=== PATIENT | male | born 1945 | race Asian ===

== ENCOUNTER 2019-04-08 19:44 | Inpatient (IN) | payer MEDICAID, MEDICARE ==
[~2019-04-08] VITALS: Ht 172.7 cm; Wt 80.7 kg
[2019-04-08 19:50] VITALS: BP 144/67
--- NOTE | 2019-04-08 19:50 | NUR ---
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 PER EMS, PT HAD VOMITING 1 AND TEMP OF 100 AT FACILITY. PT ARRIVES AWAKE; A/O X 1 TO NAME. IT IS UNKNOWN IF PT IS BOLIVIAN SPEAKING. FACILITY PAPERWORK STATES PT HAD COFFEE GROUND EMESIS X 1. NO VOMITING AT THIS TIME. AXILLARY TEMP 99.9. 3/10 PAIN NOTED PER FACIAL GRIMACING. FBS 154 MG/DL AT THIS TIME. BREATHING UNLABORED AND SYMMETRICAL; 98% ON RA. ERMD MADE AWARE OF STATUS. SIDE RAILSX1. WILL CONTINUE TO MONITOR. PMH-- CHF, DM, DIALYSIS (RIGHT UPPER CHEST ACCESS) RX:SEE PATIENT'S DYLLAN NKDA
[2019-04-08] MEDS ORDERED: PANTOPRAZOLE 40 MG in SODIUM CHLORIDE FLUSH 250 ML IV ONE (20:25)
[2019-04-08] MEDS ORDERED: PANTOPRAZOLE 40 MG INJ VIAL ONE (20:41)
[2019-04-08] MEDS ORDERED: VANCOMYCIN 1,000 MG in DEXTROSE 5% 250 ML IV ONE (21:05)
[2019-04-08] MEDS ORDERED: MEROPENEM 500 MG in NACL 0.9% 100 ML IV ONE (21:05)
[2019-04-08] MEDS ORDERED: VANCOMYCIN 1,000 MG VIAL ONE (21:54)
[2019-04-08] MEDS ORDERED: HYDROcodone/APAP 5/325 MG 1 TAB TAB PO PRN (21:55)
[2019-04-08] MEDS ORDERED: ACETAMINOPHEN 325 MG TAB PO PRN (21:55)
[2019-04-08] MEDS ORDERED: DOCUSATE SODIUM 100 MG GELCAP PO PRN (21:55)
[2019-04-08] MEDS ORDERED: ONDANSETRON 4 MG/2 ML VIAL IM/IVP PRN (21:55)
[2019-04-08 21:56] LABS: ANION GAP 12.6 (8-16); CARBON DIOXIDE 30.9 mmol/L (21-32); CHLORIDE 101 mmol/L (98-107); CREATININE 2.2 mg/dL (0.7-1.3); GLUCOSE 195 mg/dL (74-106); POTASSIUM 4.5 mmol/L (3.5-5.1); SODIUM SERUM 140 mmol/L (136-145); UREA NITROGEN, BLOOD 26 mg/dL (7-18)
[2019-04-08 22:08] LABS: ALBUMIN 2.6 g/dL (3.4-5.0); AMYLASE 101 U/L (25-115); ASPARTATE AMINOTRANSFERASE 22 U/L (15-37); BASOPHILS # (AUTO) 0.1 K/uL (0.00-0.22); BASOPHILS % (AUTO) 0.6 % (0.0-2.0); EOSINOPHILS # (AUTO) 0.1 K/uL (0-0.4); EOSINOPHILS % (AUTO) 0.7 % (0.0-4.0); HEMATOCRIT 37.1 % (36-52); HEMOGLOBIN 12.2 g/dL (12.0-18.0); LIPASE 355 U/L (73-393); LYMPHOCYTES # (AUTO) 2.4 K/uL (2.0-11.5); LYMPHOCYTES % (AUTO) 18.5 % (20.5-51.1); MEAN CORPUSCULAR HEMOGLOBIN 32 pg (27-31); MEAN CORPUSCULAR HGB CONC 33 g/dL (33-37); MEAN CORPUSCULAR VOLUME 97.3 fL (80-94); MONOCYTES # (AUTO) 1.3 K/uL (0.8-1.0); MONOCYTES % (AUTO) 10.4 % (1.7-9.3); NEUTROPHILS % (AUTO) 69.8 % (42.2-75.2); PLATELET COUNT (AUTO) 184 K/uL (140-450); RED BLOOD CELL COUNT(AUTO) 3.81 MIL/uL (4.20-6.10); RED CELL DISTRIBUTION WIDTH 15.1 % (11.6-13.7); TOTAL BILIRUBIN 0.4 mg/dL (0.0-1.0); WHITE BLOOD COUNT (AUTO) 12.9 K/uL (4.8-10.8)
[2019-04-08] MEDS ORDERED: ALBUTEROL SULFATE/IPRATROPIU 3 ML SOL IH PRN (22:45)
[2019-04-08] MEDS ORDERED: MEROPENEM 500 MG VIAL IV ONE (22:53)
[2019-04-08] MEDS ORDERED: GABA300C PO (23:01)
[2019-04-08] MEDS ORDERED: ISOS30TE68 PO (23:01)
[2019-04-08] MEDS ORDERED: DOCU-299 PO (23:01)
[2019-04-08] MEDS ORDERED: CARB1TAB37 PO (23:01)
[2019-04-08] MEDS ORDERED: ATOR10TA PO (23:01)
[2019-04-08] MEDS ORDERED: CARV6.25 PO (23:01)
[2019-04-08] MEDS ORDERED: LACT1CAP92 PO (23:01)
[2019-04-08] MEDS ORDERED: ASPI-1718 PO (23:01)
[2019-04-08] MEDS ORDERED: DULA0.75 SC (23:01)
[2019-04-08] MEDS ORDERED: FURO-570 PO (23:01)
[2019-04-08] MEDS ORDERED: HYDR-732 PO (23:01)
[2019-04-08 23:10] VITALS: BP 147/63
--- NOTE | 2019-04-08 23:10 | NUR ---
RECEIVED PT FROM ED VIA 2canSOITO PT AWAKE O X 1; PT IS CONFUSED. PT ESTONIAN; 2 DAUGHTERS AT BEDSIDE MOUNTER HAND. PT BEDREST.NON-AMBULATORY W/ IV ON THE LEFT AC G 22, PATENT INFUSING REMAINING ZOSYN. POC REVIEWED WITH DAUGHTERS. PT PLACED ON FALL RISK. WILL CONTINUE TO MONITOR
--- NOTE | 2019-04-08 23:15 | NUR ---
Patient will be admitted to care of DR. SILVA. Admited to TELE. Will go to room 123 B. Belongings list completed. Report to BRITTANY HENSLEY .
--- NOTE | 2019-04-08 23:29 | NUR ---
PATIENT PLACED ON 2LNC POST ABG RESULTS
[2019-04-08] MEDS ORDERED: DEXTROSE 50% 50 ML SYR IVP PRN (23:35)
--- NOTE | 2019-04-08 23:35 | NUR ---
DAUGHTERS INTERVIEWED HX AND PHYSICAL DONE; MRSA SWAB AND INF A AND B DONE.
[2019-04-08 23:43] LABS: PROTHROMBIN TIME 9.8 secs (10.8-13.4)
[2019-04-09] LABS: MAGNESIUM 1.9 mg/dL (1.8-2.4); PHOSPHORUS 2.8 mg/dL (2.5-4.9); THYROID STIMULATING HORMONE 0.79 uIU/mL (0.34-3.74)
[2019-04-09] MEDS: NACL 0.9% 1,000 ML IV SCH ×2 (00:19→21:54)
[2019-04-09] MEDS: PANTOPRAZOLE 40 MG INJ VIAL IVP SCH ×2 (00:20→08:59)
--- NOTE | 2019-04-09 00:20 | NUR ---
PT'S DAUGHTERS LEFT AND ASKED FOR US TO CLEAN THEIR DAD. INFORMED CHIP SEPARATOR BERTRAM AND MEREDITH. WILL BE THERE SHORTLY AFTER CLEANING 1 MORE PT COMMUNICATED BY THE CHIP SEPARATOR'S
--- NOTE | 2019-04-09 00:38 | NUR ---
PT CLEANED AND TURNED TO ONE SIDE. CHANGED INTO FRESH GOWN. MADE COMFORTABLE
--- NOTE | 2019-04-09 02:00 | NUR ---
TALKED TO EMMA FOR CT SCAN OF PT. SHE SAID SHE WILL BE BACK AND SHE NEEDS ASSISTANCE
[2019-04-09] MEDS ORDERED: PIPERACILLIN/TAZOBACTAM 3.375 GM VIAL IV ONE (05:16)
[2019-04-09] MEDS: PIPERACILLIN/TAZOBACTAM 3.375 GM in DEXTROSE 5% 50 ML IV SCH ×3 (05:21→21:09)
[2019-04-09] MEDS: hydrALAZINE 25 MG TAB PO SCH ×3 (05:22→21:00)
--- NOTE | 2019-04-09 05:44 | NUR ---
PT TAKEN TO RAD DEPT FOR CT SCAN Addendum: 04/09/19 at 0529 by Danita Hobson RN CT HEAD FOR CONFUSION
--- NOTE | 2019-04-09 06:10 | NUR ---
PT CAME BACK FROM RAD VIA SYMONE, PT COMFORTABLE PLACED BACK ON TELE
[2019-04-09] MEDS: BLOOD GLUCOSE MONITORING 1 DEV DEV FS SCH ×5 (06:15→21:08)
[2019-04-09 06:32] VITALS: BP 137/77
[2019-04-09] MEDS: ALBUTEROL SULFATE/IPRATROPIU 3 ML SOL IH SCH ×3 (06:33→20:02)
[2019-04-09 06:45] LABS: CARBON DIOXIDE 30.5 mmol/L (21-32); CHLORIDE 102 mmol/L (98-107); CREATININE 2.4 mg/dL (0.7-1.3); GLUCOSE 140 mg/dL (74-106); POTASSIUM 4.5 mmol/L (3.5-5.1); SODIUM SERUM 140 mmol/L (136-145); UREA NITROGEN, BLOOD 30 mg/dL (7-18)
[2019-04-09 06:51] LABS: CHOL/HDL RATIO 3.3 (1-4.5)
[2019-04-09 06:52] LABS: MAGNESIUM 1.9 mg/dL (1.8-2.4)
[2019-04-09 06:53] LABS: PHOSPHORUS 3.2 mg/dL (2.5-4.9)
--- NOTE | 2019-04-09 07:34 | NUR ---
SHIFT REPORT RECEIVED FROM CLINICAL ANALYST NURSE. PT IS IN BED SLEEPING AT THIS TIME. NO DISTRESS NOTED. CALL LIGHT IN REACH.
--- NOTE | 2019-04-09 08:43 | NUR ---
PATIENT HAS BEEN SCREENED AND CATEGORIZED HIGH NUTRITION RISK. PATIENT WILL BE SEEN WITHIN 1-2 DAYS OF ADMISSION. 04/09/19-04/10/[address]
[2019-04-09] MEDS: DOCUSATE SODIUM 100 MG GELCAP PO SCH ×2 (08:58→21:10)
[2019-04-09] MEDS: LACTOBACILLUS RHAMNOSUS GG 1 EACH CAP PO SCH (08:58)
[2019-04-09] MEDS: FUROSEMIDE 40 MG TAB PO SCH (08:58)
[2019-04-09] MEDS: ISOSORBIDE MONONITRATE 30 MG TABER PO SCH (08:59)
[2019-04-09] MEDS: CARBIDOPA/LEVODOPA 25/100 MG 1 TAB PO SCH ×3 (08:59→16:27)
[2019-04-09] MEDS: GABAPENTIN 300 MG CAP PO SCH ×3 (08:59→16:27)
[2019-04-09] MEDS: CARVEDILOL 6.25 MG TAB PO SCH ×2 (08:59→21:11)
[2019-04-09] MEDS ORDERED: ASPIRIN 81 MG TAB.CHEW PO SCH (09:00)
--- NOTE | 2019-04-09 09:21 | NUR ---
STILL WITH IVF NS AT 30 ML /HR LEFT AC G 22. PT NPO MIDNIGHT ENDORSED Addendum: 04/10/19 at 0448 by Danita Hobson RN LAKISHA NOTE
[2019-04-09 09:32] LABS: BASOPHILS # (AUTO) 0.2 K/uL (0.00-0.22); BASOPHILS % (AUTO) 1.1 % (0.0-2.0); EOSINOPHILS # (AUTO) 0.2 K/uL (0-0.4); HEMATOCRIT 34.8 % (36-52); HEMOGLOBIN 11.5 g/dL (12.0-18.0); LYMPHOCYTES # (AUTO) 2.9 K/uL (2.0-11.5); LYMPHOCYTES % (AUTO) 18.9 % (20.5-51.1); MEAN CORPUSCULAR HEMOGLOBIN 32 pg (27-31); MEAN CORPUSCULAR HGB CONC 33 g/dL (33-37); MEAN CORPUSCULAR VOLUME 96.2 fL (80-94); MONOCYTES # (AUTO) 1.9 K/uL (0.8-1.0); NEUTROPHILS # (AUTO) 10.4 K/uL (1.8-7.7); PLATELET COUNT (AUTO) 163 K/uL (140-450); RED BLOOD CELL COUNT(AUTO) 3.61 MIL/uL (4.20-6.10); RED CELL DISTRIBUTION WIDTH 15.1 % (11.6-13.7); WHITE BLOOD COUNT (AUTO) 15.6 K/uL (4.8-10.8)
--- NOTE | 2019-04-09 10:19 | NUR ---
PT IS RESTING IN BED. NO DISTRESS NOTED. VITAL SIGNS IN NORMAL LEVELS. CALL LIGHT IN REACH.
[2019-04-09 12:00] VITALS: BP 119/56
--- NOTE | 2019-04-09 12:03 | NUR ---
DC PLANNIN YRS OLD MALE PT WAS ADMITTED FROM [facility] WITH A DX OF PNEUMONIA. PT HAS A HX OF CHF,PARKINSON'S DISEASE ESRD HEMODIALYSIS MWF ,DM AND HTN. C XRAY SHOWED PNA, UA, SPUTUM AND URINE CULTURE PENDING. ADMINISTER IV, ZOSYN VANCOMYCIN AND MEROPENEM . GI CONSULT WITH DR BRIZUELA FOR COFFEE GRIND EMESIS , NEPHROLOGY CONSULT AND , PT EVAL. DC PLAN TO GO BACK TO [facility] WHEN STABLE. Addendum: 04/11/19 at 1506 by Lindsey Chopra CM DC PLANNING: SEEN BY [facility] TOMORROW 04/12/19 , EGD DONE GASTRITIS AND ATYPICAL DUODENITIS, CONTINUE IV ABX ZOSYN STRICT I&O , CONSULT WITH PULMO FOR PLEURAL EFFUSION. DC PLAN TO GO TO [facility] WHEN STABLE. CM TO FOLLOW Addendum: 04/12/19 at 1058 by Lindsey Chopra CM DC PLANNING: PER PATIENT'S FAMILY REQUEST (DAUGHTER) RADHA STATED THEY WANT THE PATIENT TO GO HOME, NOTIFIED INSURANCE SPOKE WITH GUCCI HERNANDEZ AT [facility] RECOMMENDED TO SEND PATIENT WITH HOME HEALTH AND PROVIDED THE CONTRACTED HOME HEALTH , [facility] # [phone] FAX # [phone] CM TO FOLLOW. Addendum: 04/12/19 at 1601 by Lindsey Chopra CM DC PLANNING: RECEIVED A CALL FROM [facility] DENIED PT BECAUSE NO NURSE IS AVAILABLE AT [facility]. [facility] STATED THEY ARE NO MORE CONTRACTED WITH [facility] .[phone] AND CALLED [phone] SPOKE WITH JAYLEN [employer] PHYSICAL THERAPIST WILL CALL BACK CM TO FOLLOW.
[2019-04-09] MEDS: INSULIN LISPRO SLIDING SCALE 100 UNITS/ML VIAL SUBQ PRN ×2 (13:20→16:28)
--- NOTE | 2019-04-09 13:51 | NUR ---
PT IS IN BED AT THIS TIME. PT RESPONDING TO NAME. PT REPOSITIONED. NO DISTRESS NOTED. VITAL SIGNS WITHIN NORMAL RANGE. NO COMPLAINS OF PAIN. CALL LIGHT IN REACH.
--- NOTE | 2019-04-09 15:15 | NUR ---
CALLED TO PT ROOM TO SXN HIM AND DAUGHTER STATED PT JUST ATE AND DID NOT WANT HIM TO BE SNX DUE TO IT MIGHT MAKE HIM VOMIT RN PERISON NOTIFIED AND WILL ENDORSE TO NOC SHIFT
[2019-04-09 16:00] VITALS: BP 132/69
--- NOTE | 2019-04-09 16:04 | NUR ---
04/09/19 RD INITIAL ASSESSMENT COMPLETED PLEASE REFER TO NUTRITION ASSESSMENT UNDER CARE ACTIVITY FOR ESTIMATED NUTRITIONAL NEEDS. 1. RECOMMEND CCHO 60 GM,RENAL PUREE DIET 2. RD TO FOLLOW-UP 2-3 DAYS, HIGH RISK HARRISON MARION, RD
--- NOTE | 2019-04-09 17:00 | NUR ---
PT IS RESTING IN BED AT THIS TIME. NO DISTRESS NOTED. PT RESPONDS TO VERBAL STIMULI. REPOSITIONED PATIENT FOR COMFORT. CALL LIGHT IN REACH.
--- NOTE | 2019-04-09 19:19 | NUR ---
SHIFT REPORT GIVEN TO SOFT METALS ENGRAVER HAND NURSE. PT IS IN BED IN STABLE CONDITION. NO DISTRESS NOTED. CALL LIGHT IN REACH.
--- NOTE | 2019-04-09 19:20 | NUR ---
RECEIVED PATIENT FROM AM NURSE, PT AWAKE AND NOT RESPONDING TO NAME, UNABLE TO VERBALIZE NEEDS. ON BEDREST, ON TELEMONITOR. WITH NO DISTRESS NOTED. VITAL SIGNS WITHIN NORMAL RANGE. NO COMPLAINS OF PAIN. CALL LIGHT IN REACH.
[2019-04-09 20:00] VITALS: BP 137/78
--- NOTE | 2019-04-09 20:21 | NUR ---
STILL WITH IVF NS AT 30 ML /HR LEFT AC G 22. PT NPO MIDNIGHT ENDORSED
--- NOTE | 2019-04-09 21:00 | NUR ---
APRESOLINE NOT GIVEN DUE TO QC=534/78; 83 HR;
[2019-04-09] MEDS: METOCLOPRAMIDE 10 MG/2 ML INJ VIAL IVP SCH (21:10)
[2019-04-09] MEDS: ATORVASTATIN 20 MG TAB PO SCH (21:11)
[2019-04-09] MEDS: SENNA 8.6 MG TAB PO SCH (21:11)
--- NOTE | 2019-04-09 22:05 | NUR ---
PT TURNED AND CLEANED ;CHANGED NO BM YET NOTED, STILL FOR OCCULT BLOOD IN STOOL
[2019-04-10] VITALS: BP 120/65
--- NOTE | 2019-04-10 00:16 | NUR ---
CHECKED PT AWAKE, BUT STILL DOES NOT RESPOND TO QUESTIONS AO X 0, PT TRYING TO GET SOME SLEEP
--- NOTE | 2019-04-10 02:45 | NUR ---
CHECKED ON PATIENT, CLEANED AND TURNED PATIENT
[2019-04-10 03:52] VITALS: BP 138/68
--- NOTE | 2019-04-10 04:51 | NUR ---
CHECKED ON PT, CLEANED AND TUNED, PT WENT BACK TO SLEEP AGAIN
[2019-04-10] MEDS: hydrALAZINE 25 MG TAB PO SCH ×3 (05:00→20:59)
[2019-04-10] MEDS: PIPERACILLIN/TAZOBACTAM 3.375 GM in DEXTROSE 5% 50 ML IV SCH ×3 (05:16→21:00)
[2019-04-10] MEDS: METOCLOPRAMIDE 10 MG/2 ML INJ VIAL IVP SCH (06:31)
[2019-04-10] MEDS: BLOOD GLUCOSE MONITORING 1 DEV DEV FS SCH ×4 (06:42→21:24)
[2019-04-10] MEDS: ALBUTEROL SULFATE/IPRATROPIU 3 ML SOL IH SCH ×3 (07:10→19:40)
--- NOTE | 2019-04-10 07:10 | NUR ---
RECEIVED BEDSIDE REPORT FROM NIGHTSHIFT NURSE. PT RESTING IN BED. ABLE TO MAKE NEEDS KNOWN. RESPIRATIONS EVEN AND UNLABORED WITH NO SOB OR RESPIRATORY DISTRESS. IV SITE IN LAC 22G IS CLEAN, DRY, AND INTACT. SKIN WARM AND DRY TO TOUCH. SAFETY MEASURES IN PLACE. WILL CONTINUE TO MONITOR.
--- NOTE | 2019-04-10 07:18 | NUR ---
PT AWAKE X,O PT IN STABLE CONDITION. FOR HD TODAY; AND FOR EGD TODAY. WILL ENDORSE TO NEXT SHIFT, FOR
[2019-04-10 08:00] VITALS: BP 128/60
[2019-04-10] MEDS: CARVEDILOL 6.25 MG TAB PO SCH ×2 (09:00→20:58)
[2019-04-10] MEDS: FUROSEMIDE 40 MG TAB PO SCH (09:00)
--- NOTE | 2019-04-10 09:15 | NUR ---
SCREEN FOR LOW WADE SCALE AT RISK, CONTINUE TO FOLLOW PRESSURE ULCER PREVENTION INTERVENTIONS. -TURN AND REPOSITION PATIENT Q2H, ASSIST IF NEEDED -ASSESS AND MONITOR SKIN CONDITION DURING POSITION CHANGES -OFFLOAD BILATERAL HEELS BY PLACING PILLOWS UNDER CALVES AT ALL TIMES, UNLESS OTHERWISE CONTRAINDICATED -PRESSURE REDISTRIBUTION BY PLACING PILLOWS AND OFFLOADING SACRALCOCCYX -KEEP SKIN CLEAN AND DRY AT ALL TIMES.
--- NOTE | 2019-04-10 09:25 | NUR ---
BLOOD SUGAR CHECKED RESULT 105. NO INSULIN COVERAGE NEEDED. REFUSED ANY JUICE APPLE SAUCE. Addendum: 04/11/19 at 0438 by Diana Bocanegra RN CANCEL ABOVE NOTES. CAREGIVER MISTAKE.
[2019-04-10] MEDS: PANTOPRAZOLE 40 MG INJ VIAL IVP SCH (10:05)
[2019-04-10] MEDS: LACTOBACILLUS RHAMNOSUS GG 1 EACH CAP PO SCH (10:06)
[2019-04-10] MEDS: GABAPENTIN 300 MG CAP PO SCH ×3 (10:06→17:36)
[2019-04-10] MEDS: ISOSORBIDE MONONITRATE 30 MG TABER PO SCH (10:06)
--- NOTE | 2019-04-10 10:06 | NUR ---
ADMINISTERED SCHEDULE MED PRESCRIBED PER MD ORDER. BP MEDICATIONS HELD DUE TO DIALYSIS PROCEDURE TODAY. SAFETY MEASURES IN PLACE. WILL CONTINUE TO MONITOR.
[2019-04-10] MEDS: CARBIDOPA/LEVODOPA 25/100 MG 1 TAB PO SCH ×3 (10:07→17:37)
[2019-04-10] MEDS: DOCUSATE SODIUM 100 MG GELCAP PO SCH ×2 (10:07→20:59)
[2019-04-10] MEDS: SENNA 8.6 MG TAB PO SCH ×2 (10:08→20:59)
[2019-04-10] MEDS ORDERED: fentaNYL 0.05 MG/ML VIAL ONE (10:51)
[2019-04-10] MEDS ORDERED: MIDAZOLAM 2 MG/2 ML VIAL ONE (10:51)
--- NOTE | 2019-04-10 11:00 | NUR ---
PT IS GETTING PICKED UP FOR EGD TODAY. CONSENT IS SIGNED AND PATIENT IS READY.
--- NOTE | 2019-04-10 11:35 | NUR ---
PT IS BACK FROM EGD. REPORT WAS GIVEN FROM OR NURSE. PT RESTING IN BED. FLACC 0. ABLE TO MAKE NEEDS KNOWN. RESPIRATIONS EVEN AND UNLABORED WITH NO SOB OR RESPIRATORY DISTRESS. SKIN WARM AND DRY TO TOUCH. SAFETY MEASURES IN PLACE. WILL CONTINUE TO MONITOR.
[2019-04-10 12:00] VITALS: BP 113/57
[2019-04-10] MEDS ORDERED: MIDAZOLAM 2 MG/2 ML VIAL IVP ONE (12:25)
[2019-04-10] MEDS ORDERED: fentaNYL 0.05 MG/ML VIAL IVP ONE (12:25)
--- NOTE | 2019-04-10 13:00 | NUR ---
POLLO NURSE ARRIVED AND GATHERED SUPPLIES. GAVE REPORT TO DIALYSIS NURSE. PT IS STABLE
--- NOTE | 2019-04-10 14:15 | NUR ---
HOURLY ROUNDING. PT RESTING IN BED. ABLE TO MAKE NEEDS KNOWN. RESPIRATIONS EVEN AND UNLABORED WITH NO SOB OR RESPIRATORY DISTRESS. SKIN WARM AND DRY TO TOUCH. PT IS TOLERATING HEMODIALYSIS. SAFETY MEASURES IN PLACE. WILL CONTINUE TO MONITOR.
[2019-04-10 14:17] LABS: BASOPHILS # (AUTO) 0.1 K/uL (0.00-0.22); EOSINOPHILS # (AUTO) 0.5 K/uL (0-0.4); HEMATOCRIT 31.5 % (36-52); HEMOGLOBIN 10.6 g/dL (12.0-18.0); LYMPHOCYTES # (AUTO) 2.3 K/uL (2.0-11.5); MEAN CORPUSCULAR HEMOGLOBIN 33 pg (27-31); MEAN CORPUSCULAR HGB CONC 34 g/dL (33-37); MONOCYTES # (AUTO) 1.4 K/uL (0.8-1.0); PLATELET COUNT (AUTO) 109 K/uL (140-450); RED BLOOD CELL COUNT(AUTO) 3.24 MIL/uL (4.20-6.10); RED CELL DISTRIBUTION WIDTH 15.1 % (11.6-13.7); WHITE BLOOD COUNT (AUTO) 12.3 K/uL (4.8-10.8)
[2019-04-10 14:28] LABS: ANION GAP 11.4 (8-16); CARBON DIOXIDE 29.2 mmol/L (21-32); CHLORIDE 103 mmol/L (98-107); CREATININE 3.5 mg/dL (0.7-1.3); GLUCOSE 217 mg/dL (74-106); POTASSIUM 4.6 mmol/L (3.5-5.1); SODIUM SERUM 139 mmol/L (136-145); UREA NITROGEN, BLOOD 42 mg/dL (7-18)
[2019-04-10 16:00] VITALS: BP 128/60
--- NOTE | 2019-04-10 16:00 | NUR ---
DIALYSIS GAVE REPORT. PT RESTING IN BED. ABLE TO MAKE NEEDS KNOWN. RESPIRATIONS EVEN AND UNLABORED WITH NO SOB OR RESPIRATORY DISTRESS. SKIN WARM AND DRY TO TOUCH. SAFETY MEASURES IN PLACE. WILL CONTINUE TO MONITOR.
[2019-04-10] MEDS: INSULIN LISPRO SLIDING SCALE 100 UNITS/ML VIAL SUBQ PRN (17:36)
--- NOTE | 2019-04-10 17:55 | NUR ---
PT RESTING IN BED. FLACC 0. ABLE TO MAKE NEEDS KNOWN. RESPIRATIONS EVEN AND UNLABORED WITH NO SOB OR RESPIRATORY DISTRESS. SKIN WARM AND DRY TO TOUCH. SAFETY MEASURES IN PLACE. WILL CONTINUE TO MONITOR.
--- NOTE | 2019-04-10 19:30 | NUR ---
RECEIVED PT IN STABLE CONDITION FRO AM NURSE/ AWAKE,ALERT AND ORIENTED X1. CONFUSED. ON TELE MONITOR. BEDREST. WITH IVF INFUSING WELL ON THE LT AC G#22. CLEAR AND PATENT. NO S/S OF ANY DISCOMFORT NOR SOB MOTED. ON O22L/NC. BEDON LOW POSITION. SIDE RAILS UP X2. CALL LIGHT PLACED WITHIN EASY REACH. FREQ ROUNDS NEEDED. WILL CONTINUE TO MONITOR.
--- NOTE | 2019-04-10 19:30 | NUR ---
ENDORSED AT BEDSIDE WITH SURFACE GRINDING MACHINE HAND NURSE. PT RESTING IN BED. ABLE TO MAKE NEEDS KNOWN. RESPIRATIONS EVEN AND UNLABORED WITH NO SOB OR RESPIRATORY DISTRESS. SKIN WARM AND DRY TO TOUCH. SAFETY MEASURES IN PLACE. PT IS STABLE
[2019-04-10 20:00] VITALS: BP 131/69
[2019-04-10] MEDS ORDERED: CRUSHER, PILL MC ONE (20:53)
[2019-04-10] MEDS: ATORVASTATIN 20 MG TAB PO SCH (20:58)
--- NOTE | 2019-04-10 21:00 | NUR ---
PO MEDS ALREADY OPENED AND READY TO GIVE BUT PT REFUSED TO TAKE ALL OF THEM.
--- NOTE | 2019-04-10 21:06 | NUR ---
PT CONFUSED AND ALTERED. UNABLE TO OBTAIN SPUTUM SAMPLE. RN ISIDRA AT BEDSIDE.
--- NOTE | 2019-04-10 21:25 | NUR ---
BLOOD SUGAR CHECKED RESULT 105. NO INSULIN COVERAGE NEEDED. REFUSED ANY JUICE APPLE SAUCE.
[2019-04-10] MEDS: NACL 0.9% 1,000 ML IV SCH (21:54)
--- NOTE | 2019-04-10 23:00 | NUR ---
MADE ROUNDS. PT ASLEEP. NO S/SO OF ANY DISTRESS NOTED.
[2019-04-11 00:42] VITALS: BP 150/80
--- NOTE | 2019-04-11 02:00 | NUR ---
PT SLEEPING. NO S/S OF ANY DISCOMFORT NOTED. WILL CONTINUE TO MONITOR.
[2019-04-11 04:00] VITALS: BP 159/84
--- NOTE | 2019-04-11 04:00 | NUR ---
VITAL SIGNS TAKEN. STABLE. NO S/S OF ANY DISTRESS NOTED.
[2019-04-11] MEDS: PIPERACILLIN/TAZOBACTAM 3.375 GM in DEXTROSE 5% 50 ML IV SCH ×3 (04:24→21:58)
[2019-04-11] MEDS: hydrALAZINE 25 MG TAB PO SCH ×3 (04:29→21:55)
[2019-04-11 06:08] LABS: BASOPHILS # (AUTO) 0.1 K/uL (0.00-0.22); BASOPHILS % (AUTO) 0.5 % (0.0-2.0); EOSINOPHILS # (AUTO) 0.7 K/uL (0-0.4); EOSINOPHILS % (AUTO) 5.4 % (0.0-4.0); HEMATOCRIT 34.3 % (36-52); HEMOGLOBIN 11.5 g/dL (12.0-18.0); LYMPHOCYTES # (AUTO) 3.1 K/uL (2.0-11.5); LYMPHOCYTES % (AUTO) 23.5 % (20.5-51.1); MEAN CORPUSCULAR HEMOGLOBIN 32 pg (27-31); MEAN CORPUSCULAR HGB CONC 34 g/dL (33-37); MONOCYTES # (AUTO) 1.8 K/uL (0.8-1.0); MONOCYTES % (AUTO) 13.4 % (1.7-9.3); NEUTROPHILS # (AUTO) 7.6 K/uL (1.8-7.7); NEUTROPHILS % (AUTO) 57.2 % (42.2-75.2); PLATELET COUNT (AUTO) 171 K/uL (140-450); RED BLOOD CELL COUNT(AUTO) 3.57 MIL/uL (4.20-6.10); RED CELL DISTRIBUTION WIDTH 14.9 % (11.6-13.7); WHITE BLOOD COUNT (AUTO) 13.3 K/uL (4.8-10.8)
[2019-04-11] MEDS: BLOOD GLUCOSE MONITORING 1 DEV DEV FS SCH ×4 (06:09→21:56)
--- NOTE | 2019-04-11 06:10 | NUR ---
BLOOD SUGAR THIS WAS CHECKED RESULT 116 . NO INSULIN COVERAGE NEEDED.
[2019-04-11 06:48] LABS: CARBON DIOXIDE 25.1 mmol/L (21-32); CHLORIDE 104 mmol/L (98-107); CREATININE 2.5 mg/dL (0.7-1.3); GLUCOSE 119 mg/dL (74-106); POTASSIUM 4.1 mmol/L (3.5-5.1); SODIUM SERUM 140 mmol/L (136-145); UREA NITROGEN, BLOOD 28 mg/dL (7-18)
--- NOTE | 2019-04-11 07:10 | NUR ---
ENDORSED PT IN STABLE CONDITION TO AM NURSE.
--- NOTE | 2019-04-11 07:26 | NUR ---
SHIFT REPORT RECEIVED FROM OVERNIGHT CASHIER NURSE. PT IS IN BED IN STABLE CONDITION. NO DISTRESS NOTED. NO COMPLAINS OF PAIN. CALL LIGHT IN REACH.
--- NOTE | 2019-04-11 07:34 | NUR ---
RECEIVED BESIDE REPORT FROM NIGHTSHIFT NURSE. PT RESTING IN BED UPON ARRIVAL. ABLE TO MAKE NEEDS KNOWN. SKIN WARM AND DRY TO TOUCH. RESPIRATIONS EVEN AND UNLABORED WITH NO SOB OR RESPIRATORY DISTRESS. IV SITE IN LEFT HAND 22G IS CLEAN, DRY, AND INTACT. SAFETY MEASURES IN PLACE. WILL CONTINUE TO MONITOR
[2019-04-11 07:45] LABS: MAGNESIUM 1.6 mg/dL (1.8-2.4); PHOSPHORUS 3.4 mg/dL (2.5-4.9)
[2019-04-11 08:00] VITALS: BP 142/64
[2019-04-11] MEDS: ALBUTEROL SULFATE/IPRATROPIU 3 ML SOL IH SCH ×3 (08:58→20:14)
[2019-04-11] MEDS: GABAPENTIN 300 MG CAP PO SCH ×3 (09:50→16:23)
[2019-04-11] MEDS: CARBIDOPA/LEVODOPA 25/100 MG 1 TAB PO SCH ×3 (09:51→16:23)
[2019-04-11] MEDS: LACTOBACILLUS RHAMNOSUS GG 1 EACH CAP PO SCH (09:51)
[2019-04-11] MEDS: SENNA 8.6 MG TAB PO SCH ×2 (09:51→21:51)
--- NOTE | 2019-04-11 09:51 | NUR ---
ADMINISTERED SCHED MED PRESCRIBED PER MD ORDER. PT TOLERATED WELL. MEDICATION EDUCATION PERFORMED. PT UNABLE TO VERBALIZE UNDERSTANDING. WILL CONTINUE TO MONITOR
[2019-04-11] MEDS: ISOSORBIDE MONONITRATE 30 MG TABER PO SCH (09:52)
[2019-04-11] MEDS: DOCUSATE SODIUM 100 MG GELCAP PO SCH ×2 (09:52→21:49)
[2019-04-11] MEDS: FUROSEMIDE 40 MG TAB PO SCH (09:52)
[2019-04-11] MEDS: CARVEDILOL 6.25 MG TAB PO SCH ×2 (09:52→21:49)
--- NOTE | 2019-04-11 11:32 | NUR ---
PT SITTING IN THE CHAIR WITH FAMILY AT BEDSIDE. ABLE TO MAKE NEEDS KNOWN. SKIN WARM AND DRY TO TOUCH. RESPIRATIONS EVEN AND UNLABORED WITH NO SOB OR RESPIRATORY DISTRESS. SAFETY MEASURES IN PLACE. WILL CONTINUE TO MONITOR.
[2019-04-11 12:00] VITALS: BP 107/58
--- NOTE | 2019-04-11 12:15 | NUR ---
HOURLY ROUNDING. PT RESTING IN BED WITH FAMILY AT BEDSIDE. ABLE TO MAKE NEEDS KNOWN. SKIN WARM AND DRY TO TOUCH. RESPIRATIONS EVEN AND UNLABORED WITH NO SOB OR RESPIRATORY DISTRESS. SAFETY MEASURES IN PLACE. WILL CONTINUE TO MONITOR.
[2019-04-11] MEDS: INSULIN LISPRO SLIDING SCALE 100 UNITS/ML VIAL SUBQ PRN ×2 (12:35→22:02)
--- NOTE | 2019-04-11 13:34 | NUR ---
ADMINISTERED SCHED MED PRESCRIBED PER MD ORDER. PT TOLERATED WELL. MEDICATION EDUCATION PERFORMED. PT UNABLE TO VERBALIZE UNDERSTANDING. WILL CONTINUE TO MONITOR
--- NOTE | 2019-04-11 14:00 | NUR ---
PT LEFT FOR RADIOLOGY FOR A CHEST US WITHOUT CONTRAST
--- NOTE | 2019-04-11 14:30 | NUR ---
PT CAME BACK FROM RADIOLOGY. SAFETY MEASURES IN PLACE
--- NOTE | 2019-04-11 14:45 | NUR ---
APPLIED CONDOM CATH TO PATIENT PRESCRIBED PER MD ORDER. PT TOLERATED WELL. EDUCATED PATIENT AND DAUGHTER ABOUT THE PURPOSE OF CONDOM CATH. DAUGHTER VERBALIZED UNDERSTANDING. SAFETY MEASURES IN PLACE
--- NOTE | 2019-04-11 15:56 | NUR ---
04/11/19 RD FOLLOW UP COMPLETED PLEASE REFER TO NUTRITION ASSESSMENT UNDER CARE ACTIVITY FOR ESTIMATED NUTRITIONAL NEEDS. 1. CONTINUE REGULAR DIET TOLERATED 2. RD TO FOLLOW-UP 3-5 DAYS, MODERATE RISK HARRISON MARION RD
[2019-04-11 16:00] VITALS: BP 100/69
[2019-04-11] MEDS: CHLORHEXADINE GLUC 2% CLOTH TP SCH (16:23)
[2019-04-11] MEDS: MUPIROCIN CA NASAL 2% 1GM TUBE NS SCH (16:23)
--- NOTE | 2019-04-11 16:24 | NUR ---
ADMINISTERED SCHED MED PRESCRIBED PER MD ORDER. PT TOLERATED WELL. MEDICATION EDUCATION PERFORMED. PT UNABLE TO VERBALIZE UNDERSTANDING. WILL CONTINUE TO MONITOR
--- NOTE | 2019-04-11 18:10 | NUR ---
PT RESTING IN BED UPON ARRIVAL. ABLE TO MAKE NEEDS KNOWN. SKIN WARM AND DRY TO TOUCH. RESPIRATIONS EVEN AND UNLABORED WITH NO SOB OR RESPIRATORY DISTRESS. SAFETY MEASURES IN PLACE. WILL CONTINUE TO MONITOR.
--- NOTE | 2019-04-11 19:25 | NUR ---
ENDORSED TO NIGHTSHIFT AT BEDSIDE. PT RESTING IN BED UPON ARRIVAL. ABLE TO MAKE NEEDS KNOWN. SKIN WARM AND DRY TO TOUCH. RESPIRATIONS EVEN AND UNLABORED WITH NO SOB OR RESPIRATORY DISTRESS. SAFETY MEASURES IN PLACE. PT IS STABLE.
--- NOTE | 2019-04-11 19:32 | NUR ---
RECEIVED PT IN STABLE CONDITION FROM AM NURSE. BEDREST PT. ON TELE MONITOR. AWAKE,ALERT AND ORIENTED X2. WITH NO DISCOMFORT NOTED. PT IS EATING DINNER WITH STANDBY ASSISTANCE. IVF INFUSING WELL ON THE LT HAND G#22. CLEAR AND PATENT. WITH CONDOM CATH ,NO URINE OUTPUT NOTED. PT ON CONTACT ISOLATION FRO MRSA NARES +. BED ON LOW POSITION. FREQ ROUNDS. NEEDED. SIDE RAILS UP X2. CALL LIGHT PLACED WITHIN REACH. WILL CONTINUE TO MONITOR.
[2019-04-11 21:00] VITALS: BP 151/82
--- NOTE | 2019-04-11 21:00 | NUR ---
MADE ROUNDS. PT IS ASLEEP. NO S/S OF ANY DISTRESS NOTED.
[2019-04-11] MEDS: NACL 0.9% 1,000 ML IV SCH (21:54)
[2019-04-11] MEDS: ATORVASTATIN 20 MG TAB PO SCH (21:57)
--- NOTE | 2019-04-11 22:02 | NUR ---
BLOOD SUGAR WAS CHECKED RESULT 260. HUMALOG 6 UNITS SLIDING SCALE GIVEN SUBQ ORDERED. PT HAD SOME APPLE SAUCE. TOLERATED WELL.
--- NOTE | 2019-04-12 00:30 | NUR ---
MADE ROUNDS. VITAL SIGNS TAKEN. STABLE. PT CONDOM CATH IN PLACED. NO URINE OUTPUT NOTED. WILL CONTINUE TO MONITOR.
[2019-04-12 00:45] VITALS: BP 152/74
--- NOTE | 2019-04-12 02:00 | NUR ---
MADE ROUNDS. T IS ASLEEP. NO S/S OF ANY DISCOMFORT NOTED.
[2019-04-12] MEDS ORDERED: PIPERACILLIN/TAZOBACTAM 3.375 GM VIAL IV ONE (03:59)
--- NOTE | 2019-04-12 04:00 | NUR ---
PT NO COUGH NOTED. SPUTUM SPECIMEN STILL NOT COLLECTED.
[2019-04-12 04:10] VITALS: BP 160/89
[2019-04-12] MEDS: hydrALAZINE 25 MG TAB PO SCH ×3 (04:44→21:02)
[2019-04-12] MEDS: PIPERACILLIN/TAZOBACTAM 3.375 GM in DEXTROSE 5% 50 ML IV SCH ×3 (04:44→21:01)
[2019-04-12] MEDS: BLOOD GLUCOSE MONITORING 1 DEV DEV FS SCH ×4 (06:02→21:18)
--- NOTE | 2019-04-12 06:05 | NUR ---
BLOOD SUGAR CHECKED RESULT 138. NO INSULIN NEEDED. PT KEPT NPO. Addendum: 04/12/19 at 0627 by Diana Bocanegra RN PT NOT NPO.
[2019-04-12 07:04] LABS: BASOPHILS # (AUTO) 0.1 K/uL (0.00-0.22); BASOPHILS % (AUTO) 0.8 % (0.0-2.0); EOSINOPHILS # (AUTO) 0.7 K/uL (0-0.4); HEMATOCRIT 36.5 % (36-52); HEMOGLOBIN 12.4 g/dL (12.0-18.0); LYMPHOCYTES # (AUTO) 1.8 K/uL (2.0-11.5); LYMPHOCYTES % (AUTO) 18.6 % (20.5-51.1); MEAN CORPUSCULAR HEMOGLOBIN 33 pg (27-31); MEAN CORPUSCULAR HGB CONC 34 g/dL (33-37); MEAN CORPUSCULAR VOLUME 96.3 fL (80-94); MONOCYTES # (AUTO) 1.1 K/uL (0.8-1.0); NEUTROPHILS # (AUTO) 5.9 K/uL (1.8-7.7); NEUTROPHILS % (AUTO) 61.6 % (42.2-75.2); PLATELET COUNT (AUTO) 188 K/uL (140-450); RED BLOOD CELL COUNT(AUTO) 3.79 MIL/uL (4.20-6.10); RED CELL DISTRIBUTION WIDTH 14.6 % (11.6-13.7); WHITE BLOOD COUNT (AUTO) 9.5 K/uL (4.8-10.8)
--- NOTE | 2019-04-12 07:10 | NUR ---
ENDORSED PT IN STABLE CONDITION TO AM NURSE.
--- NOTE | 2019-04-12 07:15 | NUR ---
RECEIVED BEDSIDE REPORT FROM NIGHTSHIFT NURSE. PT RESTING IN BED UPON ARRIVAL. ABLE TO MAKE NEEDS KNOWN. RESPIRATIONS EVEN AND UNLABORED WITH NO SOB OR RESPIRATORY DISTRESS. SKIN WARM AND DRY TO TOUCH. IV SITE IN LFA 22G IS CLEAN, DRY, AND INTACT. SAFETY MEASURES IN PLACE. WILL CONTINUE TO MONITOR
[2019-04-12 07:37] LABS: ANION GAP 14.6 (8-16); CARBON DIOXIDE 25.4 mmol/L (21-32); CHLORIDE 103 mmol/L (98-107); CREATININE 3.3 mg/dL (0.7-1.3); GLUCOSE 131 mg/dL (74-106); SODIUM SERUM 139 mmol/L (136-145); UREA NITROGEN, BLOOD 34 mg/dL (7-18)
[2019-04-12 07:42] LABS: MAGNESIUM 1.7 mg/dL (1.8-2.4)
[2019-04-12 08:00] VITALS: BP 158/86
[2019-04-12] MEDS: ALBUTEROL SULFATE/IPRATROPIU 3 ML SOL IH SCH ×3 (08:03→19:54)
[2019-04-12] MEDS: ISOSORBIDE MONONITRATE 30 MG TABER PO SCH ×2 (09:00→09:09)
[2019-04-12] MEDS: CARVEDILOL 6.25 MG TAB PO SCH ×2 (09:00→21:02)
--- NOTE | 2019-04-12 09:05 | NUR ---
Bitumen Plant Operator Note: I received MD's discharge to snf order, I spoke with regarding this. He stated he will contact patient's family regarding discharge plan since patient's family would like patient to return home upon discharge, Associate Doctor Lindsey made aware.
[2019-04-12] MEDS: DOCUSATE SODIUM 100 MG GELCAP PO SCH ×2 (09:08→21:03)
[2019-04-12] MEDS: SENNA 8.6 MG TAB PO SCH ×2 (09:08→21:03)
[2019-04-12] MEDS: FUROSEMIDE 40 MG TAB PO SCH (09:09)
[2019-04-12] MEDS: CARBIDOPA/LEVODOPA 25/100 MG 1 TAB PO SCH ×3 (09:10→16:25)
[2019-04-12] MEDS: GABAPENTIN 300 MG CAP PO SCH ×3 (09:10→16:25)
[2019-04-12] MEDS: LACTOBACILLUS RHAMNOSUS GG 1 EACH CAP PO SCH (09:11)
--- NOTE | 2019-04-12 09:25 | NUR ---
ADMINISTERED SCHED MED PRESCRIBED PER MD ORDER. PT TOLERATED WELL. MEDICATION EDUCATION PERFORMED. PT VERBALIZED UNDERSTANDING. HELD BP MEDICATIONS DUE TO DIALYSIS TODAY. SAFETY MEASURES IN PLACE. WILL CONTINUE TO MONITOR
--- NOTE | 2019-04-12 11:14 | NUR ---
PT RESTING IN BED UPON ARRIVAL. ABLE TO MAKE NEEDS KNOWN. RESPIRATIONS EVEN AND UNLABORED WITH NO SOB OR RESPIRATORY DISTRESS. SKIN WARM AND DRY TO TOUCH. PT PULLED OFF CONDOM CATH. REORIENTED PATIENT AND EDUCATED ON MAINTAINING THE CATHETER. ASSISTED CLINICAL NURSE OCCUPATIONAL MEDICINE WITH CLEANING UP PATIENT AFTER HE HAD A BM. SAFETY MEASURES IN PLACE. WILL CONTINUE TO MONITOR
[2019-04-12 12:00] VITALS: BP 158/88
[2019-04-12] MEDS: INSULIN LISPRO SLIDING SCALE 100 UNITS/ML VIAL SUBQ PRN ×3 (12:18→21:13)
--- NOTE | 2019-04-12 13:00 | NUR ---
DIALYSIS NURSE ARRIVED. GAVE REPORT. VERBALIZED UNDERSTANDING. PT RESTING IN BED UPON ARRIVAL. ABLE TO MAKE NEEDS KNOWN. RESPIRATIONS EVEN AND UNLABORED WITH NO SOB OR RESPIRATORY DISTRESS. SKIN WARM AND DRY TO TOUCH. SAFETY MEASURES IN PLACE. WILL CONTINUE TO MONITOR
[2019-04-12] MEDS ORDERED: LACT1CAP92 PO (14:31)
--- NOTE | 2019-04-12 15:00 | NUR ---
DIALYSIS NURSE IS FINISHED AND GAVE REPORT. PT HAD 2L OF FLUID TAKEN OFF. VITAL SIGNS ARE: 128/76, 82, 98%, 18, 97.9. SAFETY MEASURES IN PLACE. WILL CONTINUE TO MONITOR.
[2019-04-12] MEDS: MUPIROCIN CA NASAL 2% 1GM TUBE NS SCH (15:12)
--- NOTE | 2019-04-12 15:12 | NUR ---
ADMINISTERED SCHED MED PRESCRIBED PER MD ORDER. PT TOLERATED WELL. MEDICATION EDUCATION PERFORMED. PT VERBALIZED UNDERSTANDING. SAFETY MEASURES IN PLACE. WILL CONTINUE TO MONITOR
[2019-04-12] MEDS ORDERED: MAG SULF 2000 MG/WATER PREMIX 50 ML IV SCH (15:30)
[2019-04-12 16:00] VITALS: BP 123/60
[2019-04-12] MEDS: CHLORHEXADINE GLUC 2% CLOTH TP SCH (16:25)
--- NOTE | 2019-04-12 16:25 | NUR ---
ADMINISTERED SCHED MED PRESCRIBED PER MD ORDER. PT TOLERATED WELL. MEDICATION EDUCATION PERFORMED. PT VERBALIZED UNDERSTANDING. SAFETY MEASURES IN PLACE. WILL CONTINUE TO MONITOR
--- NOTE | 2019-04-12 17:18 | NUR ---
PT ASLEEP IN BED. RESPONSIVE TO VERBAL AND TACTILE STIMULI. ABLE TO MAKE NEEDS KNOWN. RESPIRATIONS EVEN AND UNLABORED WITH NO SOB OR RESPIRATORY DISTRESS. SKIN WARM AND DRY TO TOUCH. SAFETY MEASURES IN PLACE. WILL CONTINUE TO MONITOR
--- NOTE | 2019-04-12 18:35 | NUR ---
PT IS CONFUSED AND TRYING TO TAKE OUT IV, LEADS, AND CONDOM CATH. REORIENTED PT AND EDUCATED THE PURPOSE OF LEAVING IN THE IV, LEADS, AND CONDOM CATH. PT DID NOT VERBALIZE UNDERSTANDING. SAFETY MEASURES IN PLACE. WILL CONTINUE TO MONITOR.
--- NOTE | 2019-04-12 19:25 | NUR ---
GAVE REPORT TO NIGHTSHIFT NURSE AT BEDSIDE. PT RESTING IN BED UPON ARRIVAL. ABLE TO MAKE SOME NEEDS KNOWN. RESPIRATIONS EVEN AND UNLABORED WITH NO SOB OR RESPIRATORY DISTRESS. SKIN WARM AND DRY TO TOUCH. SAFETY MEASURES IN PLACE. PT IS STABLE
--- NOTE | 2019-04-12 19:30 | NUR ---
RECEIVED PATIENT FROM AM SHIFT IN STABLE CONDITION FOR CONTINUITY OF CARE. TELE PATIENT. RESPIRATIONS EVEN, UNLABORED. IV SITE TO LEFT FOREARM 22G PATENT/INTACT, INFUSING FLUIDS WELL. NO C/O PAIN. NO S/SX ACUTE DISTRESS. ISOLATION PRECAUTIONS OBSERVED. CALL LIGHT WITHIN REACH. WILL CONTINUE TO MONITOR.
[2019-04-12 20:00] VITALS: BP 133/73
[2019-04-12] MEDS: ATORVASTATIN 20 MG TAB PO SCH (21:01)
--- NOTE | 2019-04-12 21:38 | NUR ---
PATIENT CONTINUES IN STABLE CONDITION. NO C/O PAIN. NO S/SX ACUTE DISTRESS. CALL LIGHT WITHIN REACH. WILL CONTINUE TO MONITOR.
[2019-04-12] MEDS: NACL 0.9% 1,000 ML IV SCH (22:14)
--- NOTE | 2019-04-12 23:24 | NUR ---
MADE ROUNDS. PATIENT RESTING IN BED WITH EYES CLOSED. NO C/O PAIN. NO S/SX ACUTE DISTRESS. CALL LIGHT WITHIN REACH. WILL CONTINUE TO MONITOR.
[2019-04-13] VITALS: BP 139/79
--- NOTE | 2019-04-13 01:17 | NUR ---
PATIENT IS ASLEEP AND IN STABLE CONDITION. NO C/O PAIN. NO S/SX ACUTE DISTRESS. CALL LIGHT WITHIN REACH. WILL CONTINUE TO MONITOR.
--- NOTE | 2019-04-13 02:24 | NUR ---
ASLEEP AND IN STABLE CONDITION. NO C/O PAIN. NO S/SX ACUTE DISTRESS. CALL LIGHT WITHIN REACH. WILL CONTINUE TO MONITOR.
[2019-04-13 04:00] VITALS: BP 117/69
--- NOTE | 2019-04-13 04:30 | NUR ---
MADE ROUNDS. PATIENT ASLEEP AND IN STABLE CONDITION. RESPIRATIONS EVEN, UNLABORED. NO C/O PAIN. NO S/SX ACUTE DISTRESS NOTED. ISOLATION PRECAUTIONS OBSERVED. CALL LIGHT WITHIN REACH. WILL CONTINUE TO MONITOR.
[2019-04-13] MEDS: hydrALAZINE 25 MG TAB PO SCH ×2 (05:15→13:37)
[2019-04-13] MEDS: PIPERACILLIN/TAZOBACTAM 3.375 GM in DEXTROSE 5% 50 ML IV SCH ×2 (05:21→13:37)
--- NOTE | 2019-04-13 06:30 | NUR ---
ASLEEP AND IN STABLE CONDITION. RESPIRATIONS EVEN, UNLABORED. DUE MEDS GIVEN. NO C/O PAIN. NO S/S ACUTE DISTRESS. CALL LIGHT WITHIN REACH. WILL CONTINUE TO MONITOR.
[2019-04-13] MEDS: BLOOD GLUCOSE MONITORING 1 DEV DEV FS SCH ×3 (06:31→16:30)
--- NOTE | 2019-04-13 07:25 | NUR ---
RECEIVED REPORT FROM LEAD JAVASCRIPT ENGINEER NURSE. PATIENT LYING DOWN IN BED WATCHING TV. NO DISTRESS NOTED. DENIES ANY PAIN. AAOX3, CALM, COOPERATIVE, SKIN COLOR APPROPRIATE TO ETHNICITY, WARM TO TOUCH. SKIN INTACT. RESPIRATIONS EVEN, UNLABORED, ON ROOM AIR. IV SITE INTACT, PATENT, AND INFUSING IVF PER MD ORDERS. ABDOMEN SOFT, NON-DISTENDED. REVIEWED PLAN OF CARE WITH PATIENT. REINFORCEMENT NEEDED DUE TO LANGUAGE BARRIER. SAFETY MEASURES IN PLACE, CALL LIGHT WITHIN REACH. WILL CONTINUE TO MONITOR.
[2019-04-13] MEDS: ALBUTEROL SULFATE/IPRATROPIU 3 ML SOL IH SCH ×2 (07:41→13:19)
[2019-04-13 08:00] VITALS: BP 134/96
[2019-04-13 08:02] LABS: BASOPHILS % (AUTO) 0.3 % (0.0-2.0); EOSINOPHILS % (AUTO) 0.4 % (0.0-4.0); HEMATOCRIT 40.3 % (36-52); HEMOGLOBIN 13.4 g/dL (12.0-18.0); LYMPHOCYTES # (AUTO) 1.6 K/uL (2.0-11.5); LYMPHOCYTES % (AUTO) 15.8 % (20.5-51.1); MEAN CORPUSCULAR HEMOGLOBIN 32 pg (27-31); MEAN CORPUSCULAR HGB CONC 33 g/dL (33-37); MEAN CORPUSCULAR VOLUME 97.2 fL (80-94); MONOCYTES # (AUTO) 0.7 K/uL (0.8-1.0); MONOCYTES % (AUTO) 6.8 % (1.7-9.3); NEUTROPHILS # (AUTO) 7.8 K/uL (1.8-7.7); NEUTROPHILS % (AUTO) 76.7 % (42.2-75.2); PLATELET COUNT (AUTO) 206 K/uL (140-450); RED BLOOD CELL COUNT(AUTO) 4.14 MIL/uL (4.20-6.10); RED CELL DISTRIBUTION WIDTH 14.7 % (11.6-13.7); WHITE BLOOD COUNT (AUTO) 10.1 K/uL (4.8-10.8)
[2019-04-13 08:12] LABS: ANION GAP 17.4 (8-16); CARBON DIOXIDE 25.1 mmol/L (21-32); CHLORIDE 101 mmol/L (98-107); CREATININE 2.7 mg/dL (0.7-1.3); GLUCOSE 141 mg/dL (74-106); POTASSIUM 4.5 mmol/L (3.5-5.1); SODIUM SERUM 139 mmol/L (136-145); UREA NITROGEN, BLOOD 21 mg/dL (7-18)
[2019-04-13] MEDS: ISOSORBIDE MONONITRATE 30 MG TABER PO SCH (08:57)
[2019-04-13] MEDS: DOCUSATE SODIUM 100 MG GELCAP PO SCH (08:57)
[2019-04-13] MEDS: GABAPENTIN 300 MG CAP PO SCH ×3 (08:57→16:35)
[2019-04-13] MEDS: LACTOBACILLUS RHAMNOSUS GG 1 EACH CAP PO SCH (08:58)
[2019-04-13] MEDS: FUROSEMIDE 40 MG TAB PO SCH (08:58)
[2019-04-13] MEDS: CARBIDOPA/LEVODOPA 25/100 MG 1 TAB PO SCH ×3 (08:58→16:35)
[2019-04-13] MEDS: SENNA 8.6 MG TAB PO SCH (08:58)
[2019-04-13] MEDS: CARVEDILOL 6.25 MG TAB PO SCH (08:58)
--- NOTE | 2019-04-13 09:17 | NUR ---
PATIENT SITTING DOWN IN BED WATCHING TV. NO DISTRESS NOTED. SCHEDULED MEDICATIONS DUE GIVEN. WILL CONTINUE TO MONITOR.
[2019-04-13 09:45] LABS: MAGNESIUM 2.3 mg/dL (1.8-2.4); PHOSPHORUS 4.4 mg/dL (2.5-4.9)
--- NOTE | 2019-04-13 11:30 | NUR ---
CALLED DAUGHTER RADHA REGARDING DISCHARGE HOME TODAY WITH [facility]. PER RADHA, SHE IS ABLE TO PICK HIM UP TONIGHT AROUND [phone] BECAUSE THAT IS WHEN HER UNCLE COMES HOME AND HE CAN HELP HER GET TO HOUSE SAFELY WHEN SHE GETS HOME PATIENT IS NOT ABLE TO AMBULATE AT THIS TIME.
[2019-04-13 12:00] VITALS: BP 140/87
[2019-04-13] MEDS ORDERED: AMOX-999 PO (12:20)
[2019-04-13] MEDS ORDERED: PANT40EC PO (12:21)
[2019-04-13] MEDS: INSULIN LISPRO SLIDING SCALE 100 UNITS/ML VIAL SUBQ PRN (13:33)
--- NOTE | 2019-04-13 13:42 | NUR ---
PATIENT LYING DOWN IN BED WATCHING TV. NO DISTRESS NOTED. SCHEDULED MEDICATIONS DUE GIVEN. WILL CONTINUE TO MONITOR.
[2019-04-13] MEDS: CHLORHEXADINE GLUC 2% CLOTH TP SCH (15:30)
[2019-04-13 16:00] VITALS: BP 127/71
[2019-04-13] MEDS: MUPIROCIN CA NASAL 2% 1GM TUBE NS SCH (16:35)
--- NOTE | 2019-04-13 16:38 | NUR ---
PATIENT LYING DOWN IN BED WATCHING TV. NO DISTRESS NOTED. DENIES ANY PAIN. SCHEDULED MEDICATIONS DUE GIVEN. WILL CONTINUE TO MONITOR.
--- NOTE | 2019-04-13 19:20 | NUR ---
PATIENT'S DAUGHTER ARRIVED, AT BEDSIDE. READY TO TAKE PATIENT HOME. DISCHARGE INSTRUCTIONS GIVEN TO PATIENT AND DAUGHTER IN SPANISH PATIENT PREFERS DAUGHTER TO TRANSLATE. INSTRUCTIONS ON FOLLOW-UP, NEW/CHANGED MEDICATION REGIMEN AND SIDE EFFECTS, AND DISEASE PROCESS/MANAGEMENT OF PNA. ANSWERED ALL OF PATIENT'S/DAUGHTER'S QUESTIONS REGARDING DISCHARGE. ESCORTED PATIENT DOWN TO LOBBY VIA WHEELCHAIR. PATIENT DISCHARGED AT THIS TIME IN STABLE CONDITION.
--- NOTE | 2019-04-13 19:21 | NUR ---
IV SITE REMOVED WITH MINIMAL BLOOD AND LUMEN COMPLETELY INTACT. PATIENT TOLERATED PROCEDURE WELL.
== END 2019-04-13 19:20 | disposition home or self-care (01) | DRG 241 ==
LOC: MED 19:44 → MTU 22:02 → MMU 22:02 → UNDOADMIN 22:02 → MTU 04-11 09:06
PROVIDERS: ADMIT General Practice; ATTEND General Practice
PROC: 5A1D70Z Performance of Urinary Filtration, Intermittent, Less than 6 Hours Per Day (ICD-10-PCS; 2019-04-09)
PROC: 5A1D70Z Performance of Urinary Filtration, Intermittent, Less than 6 Hours Per Day (ICD-10-PCS; 2019-04-10)
PROC: 0DB98ZX Excision of Duodenum, Via Natural or Artificial Opening Endoscopic, Diagnostic (ICD-10-PCS; principal; 2019-04-10 11:00)
PROC: 5A1D70Z Performance of Urinary Filtration, Intermittent, Less than 6 Hours Per Day (ICD-10-PCS; 2019-04-12)
DX: K29.01 Acute gastritis with bleeding (principal); J69.0 Pneumonitis due to inhalation of food and vomit; E43 Unspecified severe protein-calorie malnutrition; J96.01 Acute respiratory failure with hypoxia; G93.41 Metabolic encephalopathy; I13.2 Hypertensive heart and chronic kidney disease with heart failure and with stage 5 chronic kidney disease, or end stage renal disease; E11.22 Type 2 diabetes mellitus with diabetic chronic kidney disease; E11.40 Type 2 diabetes mellitus with diabetic neuropathy, unspecified; G20 Parkinson's disease; N18.6 End stage renal disease; B18.1 Chronic viral hepatitis B without delta-agent; J44.0 Chronic obstructive pulmonary disease with (acute) lower respiratory infection; I25.10 Atherosclerotic heart disease of native coronary artery without angina pectoris; K29.80 Duodenitis without bleeding; F32.9 Major depressive disorder, single episode, unspecified; E78.5 Hyperlipidemia, unspecified; F02.80 Dementia in other diseases classified elsewhere, unspecified severity, without behavioral disturbance, psychotic disturbance, mood disturbance, and anxiety; R91.1 Solitary pulmonary nodule; E83.42 Hypomagnesemia; I50.43 Acute on chronic combined systolic (congestive) and diastolic (congestive) heart failure; Z68.27 Body mass index [BMI] 27.0-27.9, adult; Z99.2 Dependence on renal dialysis; Z79.82 Long term (current) use of aspirin; Z79.899 Other long term (current) drug therapy
CPT/HCPCS: 36415; 36600; 70450; 71045; 71250; 74018; 76604; 76700; 80048; 80053; 82140; 82150; 82803; 82948; 83036; 83605; 83615; 83690; 83735; 83880; 84100; 84134; 84443; 84484; 85025; 85610; 85730; 87040; 87081; 87804; 88305; 93005; 94640; 96365; 97110; 97112; 97116; 97161-GP; 97530; 99291; C9113; J1644; J1815; J2185; J2250; J2543; J2765; J3010; J3370; J3475; J7030; J7060; J7620; Q0092

== ENCOUNTER 2019-04-30 16:21 | Inpatient (IN) | payer MEDICAID, MEDICARE ==
[~2019-04-30] VITALS: Ht 167.6 cm; Wt 45.4 kg
[~2019-04-30 16:21] MED LIST: AMOX-999 PO; ASPI-1822 PO; ATOR10TA PO; CARB1TAB37 PO; CARV6.25 PO; DOCU-299 PO; DULA0.75 SC; FURO-570 PO; GABA300C PO; HYDR-732 PO; ISOS30TE68 PO; LACT1CAP92 PO; PANT40EC PO
[2019-04-30 16:23] VITALS: BP 122/65
--- NOTE | 2019-04-30 16:32 | NUR ---
WAIT AT LOBBY.
--- NOTE | 2019-04-30 17:01 | NUR ---
PT TAKEN TO BED 05 WHEELCHAIR ASSISTED
--- NOTE | 2019-04-30 17:08 | NUR ---
RADIOLOGY AT BEDSIDE
--- NOTE | 2019-04-30 17:19 | NUR ---
74 Y/O MALE C/O LT SIDED OBLIQUE PAIN PROVOKED BY COUGH. PER FAMILY MEMBER PAIN STARTED YESTERDAY. MOIST COUGH NOTED. 8/10 SHARP PAIN TO LT SIDE. DENIES N/V/D. DENIES CHEST PAIN. RR EVEN AND UNLABORED, NO ACCESSORY MUSCLE USE. PT SITTING UPRIGHT ALERT AND AWAKE. FAMILY AT BEDSIDE. VSS MEDHX: CARDIAC, STROKE, DM, HTN ALLERGIES: NKA
[2019-04-30] MEDS ORDERED: NACL 0.9% 500 ML IV SCH (17:35)
[2019-04-30 18:18] LABS: BASOPHILS # (AUTO) 0.1 K/uL (0.00-0.22); EOSINOPHILS # (AUTO) 0.2 K/uL (0-0.4); EOSINOPHILS % (AUTO) 1.6 % (0.0-4.0); HEMATOCRIT 37.9 % (36-52); HEMOGLOBIN 12.5 g/dL (12.0-18.0); LYMPHOCYTES # (AUTO) 2.4 K/uL (2.0-11.5); LYMPHOCYTES % (AUTO) 21.3 % (20.5-51.1); MEAN CORPUSCULAR HEMOGLOBIN 32 pg (27-31); MEAN CORPUSCULAR HGB CONC 33 g/dL (33-37); MEAN CORPUSCULAR VOLUME 96.8 fL (80-94); MONOCYTES # (AUTO) 1.5 K/uL (0.8-1.0); MONOCYTES % (AUTO) 12.9 % (1.7-9.3); NEUTROPHILS # (AUTO) 7.3 K/uL (1.8-7.7); NEUTROPHILS % (AUTO) 63.2 % (42.2-75.2); PLATELET COUNT (AUTO) 293 K/uL (140-450); RED BLOOD CELL COUNT(AUTO) 3.92 MIL/uL (4.20-6.10); RED CELL DISTRIBUTION WIDTH 14.6 % (11.6-13.7); WHITE BLOOD COUNT (AUTO) 11.5 K/uL (4.8-10.8)
--- NOTE | 2019-04-30 18:22 | NUR ---
STRAIGHT CATH DONE AND 200CC REMOVED
[2019-04-30 18:37] LABS: ALBUMIN 2.8 g/dL (3.4-5.0); ANION GAP 13.4 (8-16); ASPARTATE AMINOTRANSFERASE 24 U/L (15-37); CHLORIDE 97 mmol/L (98-107); CREATININE 2.9 mg/dL (0.6-1.3); GLUCOSE 183 mg/dL (74-106); POTASSIUM 3.4 mmol/L (3.5-5.1); SODIUM SERUM 136 mmol/L (136-145); TOTAL BILIRUBIN 0.5 mg/dL (0.0-1.0); UREA NITROGEN, BLOOD 18 mg/dL (7-18)
[2019-04-30 18:38] LABS: PROTHROMBIN TIME 9.9 secs (10.8-13.4)
--- NOTE | 2019-04-30 19:05 | NUR ---
REPORT RECEIVED FROM BRITTANY STOVER. TRANSFER OF CARE AT THIS TIME. PT SITTING QUIETLY IN SEMI BARRIOS'S WITH DAUGHTER SITTING NEARBY. VSS. BREATHING EVEN, UNLABORED. NO COMPLAINTS AT THIS TIME.
[2019-04-30] MEDS ORDERED: FUROSEMIDE 20 MG/2 ML VIAL IVP ONE (19:10)
[2019-04-30 19:22] LABS: APPEARANCE,URINE CLEAR (CLEAR); BILIRUBIN,URINE NEGATIVE (NEGATIVE); BLOOD, URINE 3+ (NEGATIVE); COLOR,URINE YELLOW (YELLOW); LEUKOCYTE ESTERASE ,URINE NEGATIVE (NEGATIVE); NITRITE, URINE NEGATIVE (NEGATIVE); UGLUCOSE TRACE (NEGATIVE)
--- NOTE | 2019-04-30 19:28 | NUR ---
MEDICATED WITH 20 MG IVP LASIX. WILL CONTINUE TO MONITOR.
[2019-04-30] MEDS ORDERED: ZOLPIDEM 5 MG TAB PO PRN (19:35)
[2019-04-30] MEDS ORDERED: ONDANSETRON 4 MG/2 ML VIAL IM/IVP PRN (19:35)
[2019-04-30] MEDS ORDERED: LORazepam 2 MG/ML VIAL IM/IVP PRN (19:35)
[2019-04-30] MEDS ORDERED: DOCUSATE SODIUM 100 MG GELCAP PO PRN (19:35)
[2019-04-30] MEDS ORDERED: HYDROcodone/APAP 5/325 MG 1 TAB TAB PO PRN (19:35)
[2019-04-30] MEDS ORDERED: MORPHINE SULFATE 2 MG/ML SYR IVP PRN (19:35)
[2019-04-30] MEDS ORDERED: ACETAMINOPHEN 325 MG TAB PO PRN (19:35)
[2019-04-30 19:44] LABS: RBC,URINE 50-80 /HPF (0-5)
[2019-04-30 19:45] LABS: HYALINE CASTS, URINE 0-10 /LPF (None Seen); WBC,URINE 0-5 /HPF (0-5)
[2019-04-30 20:10] LABS: BARBITURATE, URINE NEG. ng/ml (NEG <=200); BENZODIAZEPINE, URINE NEG. ng/mL (NEG <=200); CANNABINOID, URINE NEG. ng/mL (NEG <=50); COCAINE, URINE NEG. ng/mL (NEG <=300); OPIATE, URINE NEG. ng/mL (NEG <=2000); PHENCYCLIDINE SCREEN,URINE NEG. ng/mL (NEG <=25)
[2019-04-30 20:22] LABS: CHOL/HDL RATIO 3.5 (1-4.5); FREE T4 (FREE THYROXINE) 1.58 ng/dL (0.76-1.46); MAGNESIUM 1.9 mg/dL (1.8-2.4); PHOSPHORUS 3.4 mg/dL (2.5-4.9); THYROID STIMULATING HORMONE 3.27 uIU/mL (0.34-3.74)
--- NOTE | 2019-04-30 20:26 | NUR ---
PATIENT FROM ER VIA [facility]. ALERT, [place] SPEAKING. RESPIRATIONS EVEN, UNLABORED. LUNG SOUNDS CLEAR BILATERALLY. SKIN WARM, DRY TO TOUCH. HEMODIALYSIS ACCESS NOTED TO RIGHT UPPER CHEST, DRESSING INTACT. IV SITE TO LEFT AC 22G PATENT/INTACT. SKIN TEAR NOTED TO LEFT FOREARM, TEGADERM DRESSING WAS PLACED FOR PROTECTION. INTACT SCAB ALSO NOTED TO LEFT FOREARM. PATIENT IS TOTAL ASSIST FOR ALL ADLS, NON AMBULATORY. PATIENT WAS ORIENTED TO THE UNIT WITH DAUGHTER TAMMY AT BEDSIDE. ORIENTED PATIENT TO UNIT, ROOM AND STAFF. MRSA SCREEN COMPLETED. BED IN LOWEST POSITION. SAFETY PRECAUTIONS IN PLACE. CALL LIGHT WITHIN REACH. WILL CONTINUE TO MONITOR.
--- NOTE | 2019-04-30 20:26 | NUR ---
Patient will be admitted to care of Dr. Isbell. Admited to Telemetry. Will go to room 118. Belongings list completed. Report to BRITTANY Cruz.
[2019-04-30] MEDS ORDERED: NACL 0.9% 1,000 ML IV SCH (20:30)
[2019-04-30 21:30] VITALS: BP 144/76
[2019-04-30] MEDS ORDERED: POTASSIUM CHLORIDE 10 MEQ TABER PO SCH (22:30)
[2019-04-30] MEDS ORDERED: FUROSEMIDE 40 MG/4 ML VIAL IVP SCH (23:00)
--- NOTE | 2019-04-30 23:20 | NUR ---
CRITICAL LAB VALUE OF LACTIC ACID 3.[address] JORGENSEN WITH NEW FLUID ORDERS. ORDERS CARRIED OUT.
[2019-04-30] MEDS: DEXT 5% / NACL 0.9% 500 ML IV SCH (23:35)
[2019-05-01] VITALS: BP 127/72
--- NOTE | 2019-05-01 01:22 | NUR ---
PATIENT ASLEEP AND IN STABLE CONDITION. NO C/O PAIN. NO S/SX ACUTE DISTRESS. CALL LIGHT WITHIN REACH. WILL CONTINUE TO MONITOR.
--- NOTE | 2019-05-01 03:36 | NUR ---
MADE ROUNDS, PATIENT IS ASLEEP. NO C/O PAIN. NO S/SX ACUTE DISTRESS. CALL LIGHT WITHIN REACH. WILL CONTINUE TO MONITOR.
[2019-05-01 04:00] VITALS: BP 146/79
--- NOTE | 2019-05-01 04:57 | NUR ---
UPON OPENING MEDICATION FOR PATIENT, DROPPED HYDRALAZINE ON THE FLOOR. PULLED OUT ANOTHER PILL FROM [facility] TO ADMINISTER. MEDICATION ADMINISTERED ORDERED. CALL LIGHT WITHIN REACH. WILL CONTINUE TO MONITOR.
[2019-05-01] MEDS: hydrALAZINE 25 MG TAB PO SCH ×3 (05:00→20:32)
--- NOTE | 2019-05-01 06:35 | NUR ---
PATIENT IS ASLEEP AND IN STABLE CONDITION. NO C/O PAIN. NO S/SX ACUTE DISTRESS. CALL LIGHT WITHIN REACH. WILL CONTINUE TO MONITOR.
[2019-05-01 07:01] LABS: BASOPHILS # (AUTO) 0.1 K/uL (0.00-0.22); BASOPHILS % (AUTO) 0.6 % (0.0-2.0); EOSINOPHILS # (AUTO) 0.3 K/uL (0-0.4); EOSINOPHILS % (AUTO) 2.8 % (0.0-4.0); HEMATOCRIT 37.2 % (36-52); HEMOGLOBIN 12.3 g/dL (12.0-18.0); LYMPHOCYTES # (AUTO) 2.1 K/uL (2.0-11.5); MEAN CORPUSCULAR HEMOGLOBIN 32 pg (27-31); MEAN CORPUSCULAR HGB CONC 33 g/dL (33-37); MEAN CORPUSCULAR VOLUME 96.1 fL (80-94); MONOCYTES # (AUTO) 0.9 K/uL (0.8-1.0); MONOCYTES % (AUTO) 10.2 % (1.7-9.3); NEUTROPHILS # (AUTO) 5.6 K/uL (1.8-7.7); NEUTROPHILS % (AUTO) 62.4 % (42.2-75.2); PLATELET COUNT (AUTO) 273 K/uL (140-450); RED BLOOD CELL COUNT(AUTO) 3.87 MIL/uL (4.20-6.10); RED CELL DISTRIBUTION WIDTH 14.4 % (11.6-13.7); WHITE BLOOD COUNT (AUTO) 8.9 K/uL (4.8-10.8)
--- NOTE | 2019-05-01 07:23 | NUR ---
ENDORSED PATIENT IN STABLE CONDITION TO AM SHIFT NURSE FOR CONTINUITY OF CARE.
--- NOTE | 2019-05-01 07:30 | NUR ---
RECEIVED PATIENT FROM FIREFIGHTER TYPE ONE NURSE FOR CONTINUITY OF CARE. PATIENT IS SLEEPING. LAO SPEAKING ONLY. RESPIRATIONS EVEN AND UNLABORED, ON 2L O2 VIA NC. VISIBLE CHEST RISE NOTED. ON TELE MONITORING. ABDOMEN SOFT, NONTENDER. PATIENT IS NPO EXCEPT MEDS. SKIN WARM, DRY, AND SCAB AND SKIN TEARS IN THE LEFT FOREARM NOTED. IV IN THE LEFT AC G22 RUNNING D5NS AT 40 ML/HR. BED IN LOW POSITION. CALL LIGHT IS WITHIN REACH. SAFETY PRECAUTIONS IN PLACE. FALL AND CONTACT PRECAUTIONS IN PLACE. WILL CONTINUE TO MONITOR
[2019-05-01 07:42] LABS: ANION GAP 13.5 (8-16); CARBON DIOXIDE 28.1 mmol/L (21-32); CHLORIDE 102 mmol/L (98-107); GLUCOSE 171 mg/dL (74-106); POTASSIUM 4.6 mmol/L (3.5-5.1); SODIUM SERUM 139 mmol/L (136-145); UREA NITROGEN, BLOOD 17 mg/dL (7-18)
[2019-05-01 07:43] LABS: CREATININE 2.8 mg/dL (0.6-1.3)
[2019-05-01 07:47] LABS: MAGNESIUM 1.7 mg/dL (1.8-2.4); PHOSPHORUS 3.6 mg/dL (2.5-4.9)
--- NOTE | 2019-05-01 07:53 | NUR ---
DR. SILVA AND THE RESIDENT DOCTORS MADE ROUNDS
[2019-05-01 08:00] VITALS: BP 149/83
--- NOTE | 2019-05-01 08:28 | NUR ---
PATIENT HAS BEEN SCREENED AND CATEGORIZED HIGH NUTRITION RISK. PATIENT WILL BE SEEN WITHIN 1-2 DAYS OF ADMISSION. 05/01/19-05/02/[address]
[2019-05-01] MEDS ORDERED: FUROSEMIDE 20 MG/2 ML VIAL IVP SCH (09:00)
[2019-05-01] MEDS: GABAPENTIN 100 MG CAP PO SCH ×3 (09:12→16:58)
[2019-05-01] MEDS: ASPIRIN 81 MG TAB.CHEW PO SCH (09:12)
[2019-05-01] MEDS: PANTOPRAZOLE 40 MG TABEC PO SCH (09:12)
[2019-05-01] MEDS: CARBIDOPA/LEVODOPA 25/100 MG 1 TAB PO SCH ×3 (09:12→16:58)
[2019-05-01] MEDS: FUROSEMIDE 20 MG/2 ML VIAL IVP SCH (09:13)
[2019-05-01] MEDS: CARVEDILOL 6.25 MG TAB PO SCH ×2 (09:13→20:32)
[2019-05-01] MEDS: ISOSORBIDE MONONITRATE 30 MG TABER PO SCH (09:13)
--- NOTE | 2019-05-01 09:14 | NUR ---
GIVEN MORNING MEDICATIONS PO. EXPLAINED TO PATIENT MEDICATIONS. BED IN LOW POSITION. CALL LIGHT IS WITHIN REACH. WILL CONTINUE TO MONITOR
--- NOTE | 2019-05-01 09:22 | NUR ---
ECHO IS BEING DONE AT THIS TIME
--- NOTE | 2019-05-01 09:55 | NUR ---
GIVEN MAG OX FOR MAG LEVEL 1.7. EXPLAINED TO PATIENT MED. PATIENT VERBALIZED UNDERSTANDING. BED IN LOW POSITION. CALL LIGHT IS WITHIN REACH. WILL CONTINUE TO MONITOR
[2019-05-01] MEDS ORDERED: MAGNESIUM OXIDE 400 MG TAB PO SCH (10:00)
--- NOTE | 2019-05-01 10:15 | NUR ---
MADE ROUNDS. PATIENT IS AWAKE, WATCHING TV. ON 2L O2 VIA NC. NO SIGNS OF DISTRESS NOTED. BED IN LOW POSITION. CALL LIGHT IS WITHIN REACH. WILL CONTINUE TO MONITOR
[2019-05-01] MEDS ORDERED: ALBUTEROL SULFATE/IPRATROPIU 3 ML SOL IH PRN (10:50)
--- NOTE | 2019-05-01 11:09 | NUR ---
WILL COLLECT SPUTUM
--- NOTE | 2019-05-01 11:39 | NUR ---
PATIENT IS WITH PT FOR EVALUATION AT THIS TIME.
--- NOTE | 2019-05-01 11:49 | NUR ---
CHANGED EKG LEADS
[2019-05-01 12:00] VITALS: BP 119/61
--- NOTE | 2019-05-01 12:01 | NUR ---
VITALS SIGNS CHECK. VS WNL. ON 2L O2 VIA NC. PATIENT DENIES PAIN. NO SIGNS OF DISTRESS NOTED. BED IN LOW POSITION. CALL LIGHT IS WITHIN REACH. WILL CONTINUE TO MONITOR
[2019-05-01] MEDS: PIPERACILLIN/TAZOBACTAM 2.25 GM in DEXTROSE 5% 50 ML IV SCH ×2 (12:47→20:32)
--- NOTE | 2019-05-01 12:47 | NUR ---
GIVEN SCHEDULED MEDICATIONS PO. HANG ZOSYN VIA IVPB. EXPLAINED TO PATIENT MEDICATIONS AND SIDE EFFECTS. BED IN LOW POSITION. CALL LIGHT IS WITHIN REACH. WILL CONTINUE TO MONITOR.
[2019-05-01] MEDS: DEXT 5% / NACL 0.9% 500 ML IV SCH (12:55)
[2019-05-01] MEDS ORDERED: PIPERACILLIN/TAZOBACTAM 3.375 GM in DEXTROSE 5% 50 ML IV SCH (13:00)
--- NOTE | 2019-05-01 13:21 | NUR ---
DC :PLANNING 74 YRS OLD MALE PATIENT WAS ADMITTED FROM HOME WITH A DX OF EXACERBATION. PT HAS A HX OF CHF,CVA, ESRD ON HEMODIALYSIS MWF ,DM, HTN, AND [place] . CXRAY SHOWED PULMONARY EDEMA , STARTED LASIX IVP , CONTINUED HOME MEDS OVEN HEATER AND ELECTRIC ACCOUNTING MACHINE OPERATOR CONSULT. DC PLAN TO GO HOME WITH THE FAMILY WHEN STABLE CM TO FOLLOW. Addendum: 05/03/19 at 1528 by Lindsey Chopra CM DC PLANNING PER FAMILY REQUEST FAXED THE REQUEST FOR SNF FOR PT TO [facility] , CALLED SPOKE WITH [facility] , THEY ARE NOT CONTRACTED WITH [facility]. CALLED [facility] [phone] WILL FAX THE CONTRACTED FACILITIES. TO GET AUTHORIZATION ON AFTER HR AND WEEKENDS TO CALL [phone] CM TO FOLLOW Addendum: 05/03/19 at 1556 by Lindsey Chopra CM DC PLANNING: CALLED PT'S DAUGHTER AT [phone] ,SPOKE WITH RADHA , WANTED TO TAKE HIM HOME ONCE HE COMPLETED THE IV ABX. Addendum: 05/06/19 at 1440 by Lindsey Chopra CM DC PLANNING PATIENT HAS A DC ORDER TO GO TO SNF PER DR FERREIRA PT'S DAUGHTER WANTED HIM TO GO TO SNF FAXED TO THE CONTRACTED FACILITIES. [facility], [facility] ,[facility] ,[facility] AND [facility] TO FOLLOW Addendum: 05/07/19 at 1553 by Lindsey Chopra CM DC PLANNING: PT IS ACCEPTED AT [facility] CAN GO TO ROOM 7B # TO GIVE REPORT [phone] . CALLED JOE HERNANDEZ AT [facility] TO GET AUTH FOR TRANSPORT LEFT A MESSAGE CM TO FOLLOW Addendum: 05/07/19 at 1710 by Lindsey Chopra CM DC PLANNING: ARRANGED TRANSPORT WITH [facility] [phone] OPT 2 OPT 1 TOOL GRINDER SET UP OPERATOR GEAR TIME 7 PM RESERVATION # [id number] NOTIFIED DEDE SOTO Addendum: 05/08/19 at 1039 by Lindsey Chopra CM DC PLANNING: RECEIVED A CALL FROM [facility] PROVIDE AUTH [id number] TO USE [facility] .ARRANGED TRANSPORT WITH [facility] BLS TOOL GRINDER SET UP OPERATOR GEAR TIME 11AM NOTIFIED MILAGROS SOTO. Addendum: 05/08/19 at 1309 by Lindsey Chopra CM DC PLANING: LATE ENTRY O900 CALLED [facility] SPOKE WITH [facility] THAT PT NEEDS DIALYSIS TODAY AND WE CAN ARRANGE TRANSFER AFTER DIALYSIS. PER [facility] PT HAS MONDAY AND MONDAY ONLY NO NEED TO HAVE DIALYSIS TODAY.
--- NOTE | 2019-05-01 13:22 | NUR ---
*S.T. Bedside Swallow Eval completed* See report for details. Pt presents w/ adequate oropharyngeal swallow function across all textures. No overt s/s aspiration observed. Pt, however made no attempt to self-feed despite visual prompting. Recommend: 1) Advance to regular diet, thin liquids okay. Straws okay. 2) Nsg to assist w/ tray set up to promote self-feeding. 3) P.O. meds okay whole, one at a time. DC to nsg care at this time as pt does not present w/ clinical dysphagia. Endorsed to BRITTANY Bang. Time [id number]
[2019-05-01] MEDS: NACL 0.9% 1,000 ML IV SCH (14:56)
--- NOTE | 2019-05-01 14:56 | NUR ---
HANG NEW IV BAG NS 1000 ML AT RATE 10 ML/HR PER MD ORDER
--- NOTE | 2019-05-01 15:09 | NUR ---
05/01/19 RD INITIAL ASSESSMENT COMPLETED PLEASE REFER TO NUTRITION ASSESSMENT UNDER CARE ACTIVITY FOR ESTIMATED NUTRITIONAL NEEDS. 1. RECOMMEND CARDIAC, CCHO, RENAL DIET 2. RECOMMEND NEPHRO-ACE QD 3. RECOMMEND NEPRO TID 4. RD TO FOLLOW-UP 2-3 DAYS, HIGH RISK HARRISON MARION, RD
--- NOTE | 2019-05-01 15:59 | NUR ---
FAMILY AT BEDSIDE.
[2019-05-01 16:00] VITALS: BP 116/67
--- NOTE | 2019-05-01 16:58 | NUR ---
GIVEN SCHEDULED MEDICATIONS PO. EXPLAINED TO PATIENT AND FAMILY MEDS AND SIDE EFFECTS. PATIENT AND FAMILY VERBALIZED UNDERSTANDING. BED IN LOW POSITION. CALL LIGHT IS WITHIN REACH. WILL CONTINUE TO MONITOR
--- NOTE | 2019-05-01 17:23 | NUR ---
Tax Services Manager Note: I called and spoke with patient's daughter Mell Eaton , we agreed to meet tomorrow at 12pm to discuss discharge plan and community resources.
--- NOTE | 2019-05-01 18:09 | NUR ---
PATIENT IS EATING DINNER AT THIS TIME. NO SIGNS OF DISTRESS NOTED. BED IN LOW POSITION. CALL LIGHT IS WITHIN REACH.
--- NOTE | 2019-05-01 19:02 | NUR ---
ENDORSED PATIENT TO SUPERVISOR EVAPORATOR NURSE FOR CONTINUITY OF CARE. PATIENT IS IN STABLE CONDITION. NO SOB. RESPIRATORY EVEN AND UNLABORED, ON 2L O2 VIA NC.
--- NOTE | 2019-05-01 19:05 | NUR ---
RECEIVED PATIENT IN STABLE CONDITION FROM AM SHIFT NURSE FOR CONTINUITY OF CARE. RESPIRATIONS EVEN, UNLABORED. CONTINUES ON O2 2LPM NC. IV SITE TO LEFT AC 22G PATENT/INTACT, INFUSING FLUIDS WELL. NO C/O PAIN. NO S/SX ACUTE DISTRESS NOTED. PATIENT IS CLEAN/DRY. SAFETY PRECAUTIONS IN PLACE. CALL LIGHT WITHIN REACH. WILL CONTINUE TO MONITOR.
[2019-05-01 20:00] VITALS: BP 131/82
[2019-05-01] MEDS: ATORVASTATIN 20 MG TAB PO SCH (20:32)
--- NOTE | 2019-05-01 21:05 | NUR ---
PATIENT CONTINUES IN STABLE CONDITION. RESPIRATIONS EVEN, UNLABORED. NO C/O PAIN. NO S/SX ACUTE DISTRESS. CALL LIGHT WITHIN REACH. WILL CONTINUE TO MONITOR.
--- NOTE | 2019-05-01 23:00 | NUR ---
MADE ROUNDS. PATIENT IS ASLEEP AND IN STABLE CONDITION. NO C/O PAIN. NO S/SX ACUTE DISTRESS. CALL LIGHT WITHIN REACH. WILL CONTINUE TO MONITOR.
[2019-05-02] VITALS: BP 106/68
--- NOTE | 2019-05-02 01:35 | NUR ---
MADE ROUNDS. PATIENT IS ASLEEP AND IN STABLE CONDITION. NO C/O PAIN. NO S/SX ACUTE DISTRESS. CALL LIGHT WITHIN REACH. WILL CONTINUE TO MONITOR.
--- NOTE | 2019-05-02 03:02 | NUR ---
MADE ROUNDS. PATIENT IS ASLEEP AND IN STABLE CONDITION. NO C/O PAIN. NO S/SX ACUTE DISTRESS. CALL LIGHT WITHIN REACH. WILL CONTINUE TO MONITOR.
[2019-05-02 04:00] VITALS: BP 132/70
[2019-05-02] MEDS: hydrALAZINE 25 MG TAB PO SCH ×3 (04:26→21:00)
[2019-05-02] MEDS: PIPERACILLIN/TAZOBACTAM 2.25 GM in DEXTROSE 5% 50 ML IV SCH ×3 (04:30→21:45)
--- NOTE | 2019-05-02 05:49 | NUR ---
PATIENT SLEEPING AND IN STABLE CONDITION. NO C/O PAIN. NO S/SX ACUTE DISTRESS. DUE MEDS GIVEN. CALL LIGHT WITHIN REACH. WILL CONTINUE TO MONITOR.
[2019-05-02 07:05] LABS: BASOPHILS # (AUTO) 0.1 K/uL (0.00-0.22); BASOPHILS % (AUTO) 0.8 % (0.0-2.0); EOSINOPHILS # (AUTO) 0.4 K/uL (0-0.4); EOSINOPHILS % (AUTO) 4.1 % (0.0-4.0); HEMATOCRIT 34.4 % (36-52); HEMOGLOBIN 11.6 g/dL (12.0-18.0); LYMPHOCYTES # (AUTO) 1.5 K/uL (2.0-11.5); LYMPHOCYTES % (AUTO) 15.7 % (20.5-51.1); MEAN CORPUSCULAR HEMOGLOBIN 33 pg (27-31); MEAN CORPUSCULAR HGB CONC 34 g/dL (33-37); MEAN CORPUSCULAR VOLUME 96.6 fL (80-94); MONOCYTES # (AUTO) 1.3 K/uL (0.8-1.0); MONOCYTES % (AUTO) 12.7 % (1.7-9.3); NEUTROPHILS # (AUTO) 6.6 K/uL (1.8-7.7); NEUTROPHILS % (AUTO) 66.7 % (42.2-75.2); PLATELET COUNT (AUTO) 257 K/uL (140-450); RED BLOOD CELL COUNT(AUTO) 3.56 MIL/uL (4.20-6.10); RED CELL DISTRIBUTION WIDTH 14.2 % (11.6-13.7); WHITE BLOOD COUNT (AUTO) 9.9 K/uL (4.8-10.8)
--- NOTE | 2019-05-02 07:15 | NUR ---
RECEIVED PT. FROM PROJ MGR NURSE. PT. IN STABLE CONDITION, ALERT AND ORIENTED. 2L O2 THROUGH NASAL CANNULA IN PLACE WITH SATURATION OF 95%. PT. IS IN ISOLATION R/T HX OF MRSA. IV ON THE LEFT AC RUNNING NS AT 10ML/HR. SAFETY PRECAUTIONS IN PLACE. CALL LIGHT WITHIN REACH. WILL CONTINUE TO MONITOR.
[2019-05-02 07:35] LABS: ANION GAP 12.6 (8-16); CARBON DIOXIDE 27.5 mmol/L (21-32); CHLORIDE 104 mmol/L (98-107); CREATININE 3.1 mg/dL (0.6-1.3); GLUCOSE 174 mg/dL (74-106); POTASSIUM 4.1 mmol/L (3.5-5.1); SODIUM SERUM 140 mmol/L (136-145); UREA NITROGEN, BLOOD 23 mg/dL (7-18)
[2019-05-02 07:39] LABS: MAGNESIUM 1.6 mg/dL (1.8-2.4); PHOSPHORUS 3.7 mg/dL (2.5-4.9)
[2019-05-02 08:00] VITALS: BP 147/80
[2019-05-02] MEDS: FUROSEMIDE 20 MG/2 ML VIAL IVP SCH (08:57)
[2019-05-02] MEDS: CARVEDILOL 6.25 MG TAB PO SCH ×2 (08:58→21:00)
[2019-05-02] MEDS: GABAPENTIN 100 MG CAP PO SCH ×3 (08:59→17:00)
[2019-05-02] MEDS: PANTOPRAZOLE 40 MG TABEC PO SCH (09:00)
[2019-05-02] MEDS: ASPIRIN 81 MG TAB.CHEW PO SCH (09:00)
[2019-05-02] MEDS: CARBIDOPA/LEVODOPA 25/100 MG 1 TAB PO SCH ×3 (09:00→18:01)
[2019-05-02] MEDS: ISOSORBIDE MONONITRATE 30 MG TABER PO SCH (09:00)
--- NOTE | 2019-05-02 09:00 | NUR ---
MORNING MEDICATIONS GIVEN. PT. TOLERATED WELL. ASPIRIN IS NOT GIVEN DUE TO DISCREPANCY OF ORDER,PHARMACIST MICHELA TO VERIFY WITH MD. CALL LIGHT WITHIN REACH. WILL CONTINUE TO MONITOR.
[2019-05-02] MEDS: VIT-B COMP/VIT-C/FOLIC ACID 1 TAB PO SCH (09:08)
--- NOTE | 2019-05-02 09:18 | NUR ---
CHEST XRAY IS BEING DONE NOW. PT. TOLERATED WELL. WILL CONTINUE TO MONITOR PT.
--- NOTE | 2019-05-02 09:21 | NUR ---
DR. VASQUES CAME TO PT'S ROOM AND ASSESSED AND SPOKE TO PT IN ESTONIAN, PT RESPONDING APPROPRIATELY.
[2019-05-02] MEDS ORDERED: MAG SULF 2000 MG/WATER PREMIX 50 ML IV ONE (09:30)
--- NOTE | 2019-05-02 10:41 | NUR ---
MAGNESIUM IV WAS STARTED FOR MAGNESIUM LEVEL OF 1.6. COSIGNED AND VERIFIED. WILL MONITOR PT.
--- NOTE | 2019-05-02 10:52 | NUR ---
OBTAINED CONSENT FOR HEMODIALYSIS TO THE PT VIA REVIEW RN# [phone] AND PT VERBALIZED UNDERSTANDING.
--- NOTE | 2019-05-02 11:30 | NUR ---
Marketing Specialist Note: I met with patient's daughter Mell Eaton . Patient lives at home with family and Mell would like patient to return home upon discharge. Patient's family assist patient with ADLs at home. Patient has an IHSS application pending. Patient and his family are in process of moving to [place]. I provided Mell with information on [facility] ([facility]) is an alternative to nursing facilities that provides customized healthcare and social support to aging adults to help them stay independent. Mell reported she is in agreement with short term snf placement if recommended by MD and [facility] . She told me patient was at [facility] previously and does not want patient to be transferred there because he did not receive good care there. She does not have any questions/concerns at this time. Marketing Specialist and/or Business Intelligence Architect will follow up as needed.
[2019-05-02 12:38] VITALS: BP 145/76
--- NOTE | 2019-05-02 13:58 | NUR ---
PT WAS GIVEN THE SCHEDULED MEDICATIONS NOW ORAL AND IVPB, WILL MONITOR PT.
[2019-05-02] MEDS: NACL 0.9% 1,000 ML IV SCH (14:10)
--- NOTE | 2019-05-02 14:10 | NUR ---
DR. ANDREW CAME TO THE PT'S ROOM AND SPOKE TO PT BUT PT'S RESPONSE IS LIMITED, PT IS AROUSABLE BUT LETHARGIC, BLOOD GLUCOSE CHECK DONE AND RESULT IS 179, BP IS 147/82, PULSE IS 85, O2 SATURATION IS AT 100% AT 2L O2 NC. PT OPENS EYES WHEN CALLED AND GOES BACK TO SLEEP, WILL INFORMED MD ABD WILL CONTINUE TO BE MONITORED.
[2019-05-02 16:00] VITALS: BP 120/66
--- NOTE | 2019-05-02 18:01 | NUR ---
PT WAS GIVEN ORAL MEDICATION BUT REFUSED TO TAKE THE NEURONTIN, WILL MONITOR PT.
--- NOTE | 2019-05-02 19:00 | NUR ---
DIALYSIS STARTED NOW. DIALYSIS NURSE BY BEDSIDE. WILL CONTINUE TO MONITOR.
--- NOTE | 2019-05-02 19:20 | NUR ---
ENDORSED PT. TO ADJUNCT HISTORY INSTRUCTOR NURSE. PT. IS STABLE, AWAKE AND IN BED. DIALYSIS IS ONGOING. CALL LIGHT WITHIN REACH, NO SIGNS OF DISTRESS NOTED.
--- NOTE | 2019-05-02 19:30 | NUR ---
RECEIVED PT FROM BRYAN SOTO PT IS AAOX3 ON DIALYSIS, ON RT UPPER CHEST, IV ON LEFT AC INFUSING WELL TKO, MULTIPLES BRUISES ON BOTH UPPER ARM AND TINY SKIN TEAR ON LEFT FA .PT ON DIALYSIS , ON TELEMETRY SR INITIAL ASSESSMENT DONE
[2019-05-02 20:00] VITALS: BP 120/67
--- NOTE | 2019-05-02 21:45 | NUR ---
DIALLLLLLYSIS END AT 2144 AND BLOOD PRESSURE UP AND DOWN BP MEDIC IS HOLDING FOR NOW
--- NOTE | 2019-05-02 22:00 | NUR ---
RELATIVES AT BED SIDE PT GETTING SLEEP , ON TELEMETRY SR
[2019-05-02] MEDS: ATORVASTATIN 20 MG TAB PO SCH (22:10)
--- NOTE | 2019-05-02 22:22 | NUR ---
DIALYSIS END 1.7 LTS OUT, PT ON TELMETRY SR
[2019-05-03] VITALS: BP 112/58
--- NOTE | 2019-05-03 01:00 | NUR ---
PT REPOSITIONED Q2H NOT DISTRESS NOTED ON TELMETRY SR GETTING SLEEP
[2019-05-03 04:00] VITALS: BP 124/67
[2019-05-03] MEDS: PIPERACILLIN/TAZOBACTAM 2.25 GM in DEXTROSE 5% 50 ML IV SCH ×3 (05:39→21:09)
[2019-05-03] MEDS: hydrALAZINE 25 MG TAB PO SCH ×3 (05:42→21:08)
--- NOTE | 2019-05-03 05:58 | NUR ---
SPONGE BATH GIVEN LINNEN CHANGED RFMAIN QUIET, ;ON TELE SR
--- NOTE | 2019-05-03 07:00 | NUR ---
PT IS ENDORSED ;TO DAY SHIFT NURSE FOR CONTINUE OF CARE
[2019-05-03 07:18] LABS: BASOPHILS # (AUTO) 0.1 K/uL (0.00-0.22); BASOPHILS % (AUTO) 0.9 % (0.0-2.0); EOSINOPHILS # (AUTO) 0.4 K/uL (0-0.4); EOSINOPHILS % (AUTO) 3.4 % (0.0-4.0); HEMATOCRIT 34.3 % (36-52); HEMOGLOBIN 11.2 g/dL (12.0-18.0); LYMPHOCYTES # (AUTO) 2.7 K/uL (2.0-11.5); LYMPHOCYTES % (AUTO) 24.1 % (20.5-51.1); MEAN CORPUSCULAR HEMOGLOBIN 32 pg (27-31); MEAN CORPUSCULAR HGB CONC 33 g/dL (33-37); MEAN CORPUSCULAR VOLUME 97.2 fL (80-94); MONOCYTES # (AUTO) 1.1 K/uL (0.8-1.0); MONOCYTES % (AUTO) 10.4 % (1.7-9.3); NEUTROPHILS # (AUTO) 6.7 K/uL (1.8-7.7); NEUTROPHILS % (AUTO) 61.2 % (42.2-75.2); PLATELET COUNT (AUTO) 252 K/uL (140-450); RED BLOOD CELL COUNT(AUTO) 3.53 MIL/uL (4.20-6.10); RED CELL DISTRIBUTION WIDTH 14.1 % (11.6-13.7)
[2019-05-03 07:24] LABS: ANION GAP 13.6 (8-16); CARBON DIOXIDE 28.4 mmol/L (21-32); CHLORIDE 102 mmol/L (98-107); GLUCOSE 163 mg/dL (74-106); SODIUM SERUM 140 mmol/L (136-145); UREA NITROGEN, BLOOD 12 mg/dL (7-18)
--- NOTE | 2019-05-03 07:26 | NUR ---
RECEIVED BEDSIDE SHIFT REPORT FROM POST DOC FELLOWSHIP NURSE FOR CONTINUATION OF CARE.
[2019-05-03 07:35] LABS: MAGNESIUM 1.8 mg/dL (1.8-2.4)
[2019-05-03 07:51] LABS: CREATININE 2.2 mg/dL (0.6-1.3)
[2019-05-03 08:00] VITALS: BP 129/74
[2019-05-03] MEDS: CARVEDILOL 6.25 MG TAB PO SCH ×2 (08:52→21:08)
[2019-05-03] MEDS: ASPIRIN 81 MG TAB.CHEW PO SCH (08:52)
[2019-05-03] MEDS: FUROSEMIDE 20 MG/2 ML VIAL IVP SCH (08:52)
[2019-05-03] MEDS: GABAPENTIN 100 MG CAP PO SCH ×3 (08:52→17:00)
[2019-05-03] MEDS: PANTOPRAZOLE 40 MG TABEC PO SCH (08:53)
[2019-05-03] MEDS: ISOSORBIDE MONONITRATE 30 MG TABER PO SCH (08:53)
[2019-05-03] MEDS: VIT-B COMP/VIT-C/FOLIC ACID 1 TAB PO SCH (08:53)
[2019-05-03] MEDS: CARBIDOPA/LEVODOPA 25/100 MG 1 TAB PO SCH ×3 (08:53→17:00)
--- NOTE | 2019-05-03 10:00 | NUR ---
ROUNDS MADE FOR SAFETY, PATIENT IS RESTING IN BED, NO SIGNS OF DISTRESS. 50% OF BREAKFAST CONSUMED WITH ASSISTANCE FOR FEEDING, MEDICATIONS CRUSHED AND GIVEN IN BREAKFAST. PATIENT HESITANT TO TAKE MEDICATIONS, BUT IS UNABLE TO RETURN VERBALIZE INDICATIONS FOR MEDICATIONS. WILL CONTINUE TO MONITOR.
[2019-05-03 12:00] VITALS: BP 146/75
--- NOTE | 2019-05-03 12:30 | NUR ---
PATIENT IS RESTING IN BED, IV ANTIBIOTICS RUNNING AT 100 ML/HR, TOLERATING WELL. POSITION CHANGED, SPONGE BATH ADMINISTERED, EDUCATED ON THE CALL LIGHT, RETURN DEMONSTRATION PROVIDED. WILL CONTINUE TO MONITOR.
[2019-05-03] MEDS: NACL 0.9% 1,000 ML IV SCH (14:10)
--- NOTE | 2019-05-03 14:52 | NUR ---
05/03/19 RD FOLLOW UP COMPLETED PLEASE REFER TO NUTRITION ASSESSMENT UNDER CARE ACTIVITY FOR ESTIMATED NUTRITIONAL NEEDS. 1. CONTINUE CARDIAC, CCHO, RENAL DIET TOLERATED 2. CONTINUE NEPHRO-ACE QD 3. CONTINUE NEPRO SHAKE TID 4. RD TO FOLLOW-UP 3-5 DAYS, MODERATE RISK HARRISON MARION RD
--- NOTE | 2019-05-03 15:00 | NUR ---
PATIENT IS RESTING IN BED, VITAL SIGNS ARE STABLE, NO SIGNS OF DISTRESS NOTED AT THIS TIME. IV FLUID RUNNING AT 10 ML/HR. WILL CONTINUE TO MONITOR.
--- NOTE | 2019-05-03 15:50 | NUR ---
Brittany from [facility] notified regarding the HD ordered for tomorrow. Ernesto assigned made aware.
[2019-05-03 16:00] VITALS: BP 113/68
--- NOTE | 2019-05-03 16:44 | NUR ---
PATIENT IS RESTING IN BED, LINENS CHANGED, IV FLUID RUNNING, NO SIGNS OF DISTRESS NOTED. EDUCATED ON THE IMPORTANCE OF USING THE CALL LIGHT, REINFORCEMENT NEEDED. WILL CONTINUE TO MONITOR.
--- NOTE | 2019-05-03 19:25 | NUR ---
BEDSIDE SHIFT REPORT GIVEN TO PRESSURIZATION MECHANIC NURSE FOR CONTINUATION OF CARE.
--- NOTE | 2019-05-03 19:26 | NUR ---
BEDSIDE REPORT FROM AM SHIFT, KAYLA, PT A, A O X 3, WITH SOME CONFUSION , PATIENT IS ON BEDREST, NO SIGNS OF DISTRESS.WITH FAMILY AT BEDSIDE. PT WITH RIGHT IJ TUNNELED CATHETER. WITH LEFT AC G 22, IVF RUNNING AT ORDERED RATE, PT IS A FEEDER. FALL RISK PRECAUTIONS. CALL LIGH WITHIN REACH. PATENT WILL CONTINUE TO MONITOR.
[2019-05-03 20:00] VITALS: BP 153/68
[2019-05-03] MEDS: ATORVASTATIN 20 MG TAB PO SCH (21:09)
--- NOTE | 2019-05-03 21:22 | NUR ---
PT SEEN AND ASSESSED. PT IS IN NO APPARENT RESPIRATORY DISTRESS AT THIS TIME; HR 89, RR 20, SPO2 OF 94% ON ROOM 3L NC, AND A CLEAR BREATH SOUNDS. NO INDICATION FOR HHN PRN TX AT THIS TIME. WILL CONTINUE TO MONITOR PT.
--- NOTE | 2019-05-03 21:55 | NUR ---
PT GIVEN NEPRO AND PEANUT BUTTER SANDWICH (HALF). PT TOOK THE SANDWICH AND HALF OF THE NEPRO
--- NOTE | 2019-05-03 22:13 | NUR ---
PATIENT CLEANED AND TURNED BY 2 GRADES 9 THROUGH 12 TEACHER'S NO REDNESS NOTED ON THE BUTTOCKS OR SIGNS OF MAD. WILL CONTINUE TO MONITOR
[2019-05-04] VITALS: BP 143/80
--- NOTE | 2019-05-04 00:15 | NUR ---
PT SLEEPING, NO SOB, NO SIGNS AND SYMPTOMS OF PAIN, SLEEPING COMFORTABLY. WILL CONTINUE TO MONITOR
--- NOTE | 2019-05-04 02:44 | NUR ---
XRAY CALLED RE: 2 VIEW OF CHEST. PER CORK MOLDER WILL TRY TO DO IT IN THE AM Addendum: 05/04/19 at 0245 by Danita Hobson RN WRONG PATIENT
--- NOTE | 2019-05-04 02:47 | NUR ---
PT CHECKED, TURNED PATIENT TO SIDE AND CLEANED PATIENT WILL CONTINUE TO MONITOR
[2019-05-04 04:00] VITALS: BP 145/80
[2019-05-04] MEDS: hydrALAZINE 25 MG TAB PO SCH ×3 (05:05→20:47)
[2019-05-04] MEDS: PIPERACILLIN/TAZOBACTAM 2.25 GM in DEXTROSE 5% 50 ML IV SCH ×3 (05:06→20:54)
--- NOTE | 2019-05-04 06:53 | NUR ---
PT AWAKE, ALERT ORIENTED X 3, W/ SOME CONFUSION . PT FOR DIALYSIS TODAY. WILL ENDORSE TO NEXT SHIFT
--- NOTE | 2019-05-04 07:16 | NUR ---
RECEIVED BEDSIDE SHIFT REPORT FROM SOLAR ENERGY SYSTEMS ENGINEER NURSE FOR CONTINUATION OF CARE.
[2019-05-04 07:49] LABS: BASOPHILS # (AUTO) 0.1 K/uL (0.00-0.22); BASOPHILS % (AUTO) 1.2 % (0.0-2.0); EOSINOPHILS # (AUTO) 0.6 K/uL (0-0.4); EOSINOPHILS % (AUTO) 4.6 % (0.0-4.0); HEMATOCRIT 34.9 % (36-52); HEMOGLOBIN 11.6 g/dL (12.0-18.0); LYMPHOCYTES # (AUTO) 2.8 K/uL (2.0-11.5); MEAN CORPUSCULAR HEMOGLOBIN 32 pg (27-31); MEAN CORPUSCULAR HGB CONC 33 g/dL (33-37); MEAN CORPUSCULAR VOLUME 96.4 fL (80-94); MONOCYTES # (AUTO) 1.2 K/uL (0.8-1.0); MONOCYTES % (AUTO) 9.3 % (1.7-9.3); NEUTROPHILS # (AUTO) 7.9 K/uL (1.8-7.7); NEUTROPHILS % (AUTO) 62.9 % (42.2-75.2); PLATELET COUNT (AUTO) 261 K/uL (140-450); RED BLOOD CELL COUNT(AUTO) 3.63 MIL/uL (4.20-6.10); RED CELL DISTRIBUTION WIDTH 14.3 % (11.6-13.7); WHITE BLOOD COUNT (AUTO) 12.5 K/uL (4.8-10.8)
[2019-05-04 08:00] VITALS: BP 142/85
[2019-05-04 08:14] LABS: ANION GAP 13.9 (8-16); CARBON DIOXIDE 26.7 mmol/L (21-32); CHLORIDE 101 mmol/L (98-107); CREATININE 2.7 mg/dL (0.6-1.3); GLUCOSE 185 mg/dL (74-106); POTASSIUM 3.6 mmol/L (3.5-5.1); SODIUM SERUM 138 mmol/L (136-145); UREA NITROGEN, BLOOD 27 mg/dL (7-18)
[2019-05-04 08:18] LABS: MAGNESIUM 1.8 mg/dL (1.8-2.4); PHOSPHORUS 3.2 mg/dL (2.5-4.9)
[2019-05-04] MEDS: CARVEDILOL 6.25 MG TAB PO SCH ×2 (09:00→20:48)
[2019-05-04] MEDS: ISOSORBIDE MONONITRATE 30 MG TABER PO SCH (09:00)
[2019-05-04] MEDS: CARBIDOPA/LEVODOPA 25/100 MG 1 TAB PO SCH ×3 (09:00→16:53)
[2019-05-04] MEDS: PANTOPRAZOLE 40 MG TABEC PO SCH (09:00)
[2019-05-04] MEDS: ASPIRIN 81 MG TAB.CHEW PO SCH (09:00)
[2019-05-04] MEDS: GABAPENTIN 100 MG CAP PO SCH ×3 (09:00→16:53)
[2019-05-04] MEDS: VIT-B COMP/VIT-C/FOLIC ACID 1 TAB PO SCH (09:00)
[2019-05-04] MEDS: FUROSEMIDE 20 MG/2 ML VIAL IVP SCH (09:28)
--- NOTE | 2019-05-04 10:00 | NUR ---
BIPAP PLACED VIA RT FOR DYSPNEA WITH SPO2 SAT 85%. SATS WITH BIPAP ARE 100% AND PATIENT ENDORSES FEELING BETTER. MEDICATION HELD PER DIALYSIS. WILL CONTINUE TO MONITOR.
[2019-05-04] MEDS ORDERED: ALTEPLASE 2 MG VIAL MC STA ×2 (10:59→11:37)
[2019-05-04] MEDS ORDERED: ALBUMIN HUMAN 25% 200 ML IV STA (10:59)
[2019-05-04 12:00] VITALS: BP 114/66
--- NOTE | 2019-05-04 14:00 | NUR ---
DIALYSIS NURSE REMOVED 3 LITERS. PATIENT REPORTS BEING ABLE TO BREATHE EASIER. BIPAP CONTINUES TO REMAIN. 100% O2 SAT. PATIENT IS RESTING IN BED. BED IN LOW POSITION. CALL LIGHT ON AND WITHIN REACH.
[2019-05-04] MEDS: NACL 0.9% 1,000 ML IV SCH (14:10)
[2019-05-04 16:00] VITALS: BP 136/78
--- NOTE | 2019-05-04 17:00 | NUR ---
FAMILY AT BEDSIDE, ASSISTING PATIENT TO EAT. WITH BIPAP OFF PATIENT HAS SATS AROUND THE HIGH 80'S WITH NO OBVIOUS SIGNS OF DYSPNEA. WILL CONTINUE TO MONITOR.
--- NOTE | 2019-05-04 19:25 | NUR ---
RECEIVED REPORT AT BEDSIDE FORM KAYLA SOTO DAYSHIFT NURSE FOR CONTINUITY OF CARE, PT IN STABLE CONDITION.
--- NOTE | 2019-05-04 19:25 | NUR ---
BEDSIDE SHIFT REPORT GIVEN TO HOSTESS NURSE FOR CONTINUATION OF CARE.
[2019-05-04 20:00] VITALS: BP 137/69
--- NOTE | 2019-05-04 20:00 | NUR ---
PT IN BED AOX1-2 WITH BIPAP ON PT STATING 92%, NO S/S OF PAIN OR DISTRESS. PT LUNG SOUNDS DIMINISHED NOTED WITH SOME WHEEZING WITH AUSCULTATION. PT SKIN INTACT AND HE HAS IV SITE ON LAC 22 GUAGE RUNNING NORMAL SALINE AT 10MLS/HR TO KVO. IV SITE IS INTACT AND ASYMPTOMATIC. V/S FOLLOWS; T 98.1 P 82 R 20 B/P 137/69 02 96% WITH ALL CURRENT BIPAP SETTINGS. ALL FALLS PROTOCOL IN PLACE AND FAMILY AT BEDSIDE.
[2019-05-04] MEDS ORDERED: CRUSHER, PILL MC ONE (20:43)
[2019-05-04] MEDS: ATORVASTATIN 20 MG TAB PO SCH (20:49)
--- NOTE | 2019-05-04 21:02 | NUR ---
pt taken off bipap and placed on 8l oxymizer. pt appears in no distress. saturation high 90s. b/s were clear. family at bedside. will cont to monitor
--- NOTE | 2019-05-04 21:30 | NUR ---
PT GIVEN ORDERED APRESOLINE, COREG AND LIPITOR BY MOUTH. MEDICATION EDUCATION INCLUDING SIDE EFFECTS PROVIDED TO PT AND FAMILY AT BEDSIDE. PT ALSO GIVEN IVP ZOSYN MEDICATION EDUCATION PROVIDED TO FAMILY AND PT AT BEDSIDE, IV SITE INTACT AND ASYMPTOMATIC. RT SHAMIKA AT BEDSIDE TO WEAN PT OFF BIPAP. HE PLACED PT ON 8 LITERS OXYMIZER, FAMILY EDUCATED REGARDING BIPAP AND OXYMIZER BY SHAMIKA AT BEDSIDE. WILL CONTINUE TO MONITOR PT B/P AND RESPIRATORY FUNCTION. ALL FALLS PROTOCOL IN PLACE.
--- NOTE | 2019-05-04 22:30 | NUR ---
PT WAS TURNED AND REPOSITIONED IN BED. FAMILY REQUEST TEMP BE RETAKEN DUE TO FAMILY CONCERNED THAT PT "FEELS WARM TEMP RETAKEN AND IS WAS 98.4. PT 98% 02 VIA OXYMIZER. ALL FALLS PROTOCOL IN PLACE.
[2019-05-05] VITALS: BP 106/67
--- NOTE | 2019-05-05 | NUR ---
PT IN BED H WAS TURNED AND CHANGED , VITAL SIGNS STABLE IV SITE INTACT AND RUNNING NS ORDERED PT TOLERATEING OXYMIZER AT 8L WITH 02 AT 97%. ALL FALLS PRECAUTIONS IN PLACE.
[2019-05-05 04:00] VITALS: BP 137/86
--- NOTE | 2019-05-05 04:00 | NUR ---
PT IN BED HE WAS TURNED, CHANGED AND REPOSITIONED IN BED. VS STABLE IV SITE INTACT AND RUNNING NS ORDERED. PT TOLERATING OXYMIZER T 8 LITERS HE IS STATING 98%. ALL FALLS PRECAUTIONS IN PLACE AND NO S/S OF PAIN OR DISTRESS NOTED.
[2019-05-05] MEDS: hydrALAZINE 25 MG TAB PO SCH ×3 (05:00→21:00)
[2019-05-05] MEDS: PIPERACILLIN/TAZOBACTAM 2.25 GM in DEXTROSE 5% 50 ML IV SCH ×3 (05:00→21:00)
--- NOTE | 2019-05-05 06:00 | NUR ---
PT DECLINES ORDERED HYDRAZINE PO.
--- NOTE | 2019-05-05 07:15 | NUR ---
RECIEVED REPORT FROM SITE PHYSICIAN NURSE. PT IS ASLEEP. NO SIGNS OF DISTRESS. PT HAS OXIMIZER AT 8LPM. PT HAS LEFT AC 22G WITH NS INFUSING AT 10ML/HR. PT IS ON REGULAR DIET BUT REQUIRES A FEEDER. WILL CONTINUE TO MONITOR
[2019-05-05 07:54] LABS: BASOPHILS # (AUTO) 0.2 K/uL (0.00-0.22); BASOPHILS % (AUTO) 1.6 % (0.0-2.0); EOSINOPHILS # (AUTO) 0.3 K/uL (0-0.4); EOSINOPHILS % (AUTO) 2.8 % (0.0-4.0); HEMATOCRIT 31.3 % (36-52); HEMOGLOBIN 10.6 g/dL (12.0-18.0); LYMPHOCYTES # (AUTO) 2.3 K/uL (2.0-11.5); LYMPHOCYTES % (AUTO) 19.1 % (20.5-51.1); MEAN CORPUSCULAR HEMOGLOBIN 32 pg (27-31); MEAN CORPUSCULAR HGB CONC 34 g/dL (33-37); MEAN CORPUSCULAR VOLUME 93.9 fL (80-94); MONOCYTES # (AUTO) 1.1 K/uL (0.8-1.0); MONOCYTES % (AUTO) 9.4 % (1.7-9.3); NEUTROPHILS # (AUTO) 8.1 K/uL (1.8-7.7); NEUTROPHILS % (AUTO) 67.1 % (42.2-75.2); PLATELET COUNT (AUTO) 238 K/uL (140-450); RED BLOOD CELL COUNT(AUTO) 3.33 MIL/uL (4.20-6.10); RED CELL DISTRIBUTION WIDTH 14.1 % (11.6-13.7)
[2019-05-05 08:00] VITALS: BP 131/72
[2019-05-05 08:04] LABS: ANION GAP 14.7 (8-16); CARBON DIOXIDE 24.9 mmol/L (21-32); CHLORIDE 102 mmol/L (98-107); CREATININE 2.8 mg/dL (0.6-1.3); GLUCOSE 173 mg/dL (74-106); POTASSIUM 3.6 mmol/L (3.5-5.1); SODIUM SERUM 138 mmol/L (136-145); UREA NITROGEN, BLOOD 24 mg/dL (7-18)
[2019-05-05] MEDS: FUROSEMIDE 20 MG/2 ML VIAL IVP SCH (08:53)
[2019-05-05] MEDS: CARVEDILOL 6.25 MG TAB PO SCH ×2 (08:54→21:00)
[2019-05-05] MEDS: ISOSORBIDE MONONITRATE 30 MG TABER PO SCH (08:54)
[2019-05-05] MEDS: ASPIRIN 81 MG TAB.CHEW PO SCH (08:54)
[2019-05-05] MEDS: VIT-B COMP/VIT-C/FOLIC ACID 1 TAB PO SCH (08:55)
[2019-05-05] MEDS: GABAPENTIN 100 MG CAP PO SCH ×3 (08:55→17:07)
[2019-05-05] MEDS: PANTOPRAZOLE 40 MG TABEC PO SCH (08:56)
[2019-05-05] MEDS: CARBIDOPA/LEVODOPA 25/100 MG 1 TAB PO SCH ×3 (08:56→17:07)
--- NOTE | 2019-05-05 09:00 | NUR ---
SCHEDULED MEDS GIVEN. CRUSHED MEDS AND MIXED WITH APPLE SAUCE. PT TOLERATED WELL. WILL CONTINUE TO MONITOR
[2019-05-05 09:03] LABS: MAGNESIUM 1.7 mg/dL (1.8-2.4); PHOSPHORUS 3.2 mg/dL (2.5-4.9)
[2019-05-05] MEDS ORDERED: MAG SULF 2000 MG/WATER PREMIX 50 ML IV SCH (11:00)
[2019-05-05 12:00] VITALS: BP 124/68
--- NOTE | 2019-05-05 13:16 | NUR ---
SCHEDULED MEDS GIVEN. FAMILY AT BEDSIDE. PT TOLERATED WELL. PT IS STABLE. NO SIGNS OF DISTRESS. WILL CONTINUE TO MONITOR
[2019-05-05] MEDS: NACL 0.9% 1,000 ML IV SCH (14:10)
[2019-05-05 16:00] VITALS: BP 130/70
--- NOTE | 2019-05-05 17:10 | NUR ---
FREQUENT ROUNDS DONE. FAMILY AT BEDSIDE. SCHEDULED MEDS GIVEN. PT TOLERATED WELL. WILL CONTINUE TO MONITOR
--- NOTE | 2019-05-05 19:15 | NUR ---
REPORT GIVEN TO BELLOWS FILLER NURSE FOR CONTINUITY OF CARE. PT IS STABLE. CALL LIGHT WITHIN PT'S REACH
--- NOTE | 2019-05-05 19:40 | NUR ---
RECEIVED REPORT FROM CHARGE NURSE. PATIENT IN STABLE CONDITION AT THIS TIME, DAUGHTER AT BEDSIDE. PATIENT AWAKE, EYES OPEN, SLIGHTLY DROWSY. PATIENT IS ENGLISH SPEAKING, ABLE TO ANSWER SOME SIMPLE QUESTIONS. ON OXYMIZER, 6 LPM, WITH SATURATIONS 98%. BREATHING IS EVEN AND UNLABORED, LUNG SOUNDS SLIGHTLY WHEEZING, DIMINISHED AT BASES. S1S2, + PULSES PALPATED. LEFT AC, 22G, FLUSHED AND PATENT WITHOUT SYMPTOMS, INFUSING D5 NS @ 10ML/HR. SKIN WARM AND DRY, INTACT BUT MULTIPLE BRUISES NOTED AT BILATERAL UPPER EXTREMITIES. PATIENT HAS URINAL AT BEDSIDE. ORIENTED TO CALL LIGHT AND URINAL. PATIENT DENIES PAIN AT THIS TIME. ASSISTED WITH REPOSITIONING. BED LOCKED AND IN LOWEST POSITION, UPDATED FAMILY ON TREATMENT PLAN, WILL CONTINUE TO MONITOR. Addendum: 05/06/19 at 0459 by Rachael Ortiz RN RIGHT UPPPER CHEST, HEMODIALYSIS CATHETER.
[2019-05-05 20:00] VITALS: BP 112/62
--- NOTE | 2019-05-05 20:29 | NUR ---
CLARIFIED WITH RESIDENT MD, PATIENT HAS 2 SCHEDULED MEDICATIONS FOR HTN-HYDRALAZINE, AND COREG. MD AWARE THAT BLOOD PRESSURE CURRENTLY IS 112/62. CONFIRMED OK TO HOLD HTN MEDICATIONS FOR NOW.
[2019-05-05] MEDS: ATORVASTATIN 20 MG TAB PO SCH (21:01)
--- NOTE | 2019-05-05 21:30 | NUR ---
SCHEDULED MEDICATIONS ADMINISTERED EXCEPT FOR HTN MEDS. DAUGHTER AT BEDSIDE. PATIENT TOLERATED WELL. RN ASSISTED WITH FEEDING. PATIENT ATE A SANDWICH AND 1 FULL APPLESAUCE. DAUGHTER REQUESTING TO SPEAK WITH RESIDENT MD FOR FOLLOWUP/PATIENT UPDATE. NOTIFIED RESIDENT MD. ALL NEEDS MET AT THIS TIME.
--- NOTE | 2019-05-05 23:35 | NUR ---
CHECKED IN ON PATIENT, OXYMIZER WAS NOT COMPLETELY ON CORRECTLY, 02SATS IN 70's. REPLACED OXYMIZER, SATURATIONS NOW IN 90'S%. EXPLAINED TO PATIENT TO KEEP OXYMIZER ON, PROVIDED EDUCATION, PATIENT IS POLISH SPEAKING BUT HE NODDED HEAD AND SAID YES. HELPED TURN AND REPOSITIONED PATIENT. SAFETY ALARMS IN PLACE.
[2019-05-06] VITALS: BP 122/68
--- NOTE | 2019-05-06 01:24 | NUR ---
PATIENT SEEN RESTING WELL, EYES CLOSED, CONNECTED TO SUPERVISOR PROP MAKING AND PULSE OX. EQUAL CHEST RISE AND FALL. ALL VITALS WNL. CALL LIGHT WITHIN REACH, SAFETY ALARMS IN PLACE, FLACC 0 .
[2019-05-06 04:00] VITALS: BP 107/53
--- NOTE | 2019-05-06 04:10 | NUR ---
PATIENT GRABBING AT ZINA AREA. OFFERED A URINAL BECAUSE PATIENT IS SQUEEZING AND REACHING FOR GENITAL AREA. AND WHEN ASKED IF HE NEEDS TO USE THE BATHROOM HE SAID YES. PATIENT PROVIDED URINAL AND GIVEN TIME TO VOID, BUT NO OUTPUT. EXPLAINED HIS CONDITION-ON HEMODIALYSIS, BUT CANNOT VERBALIZE UNDERSTANDING. PROVIDED SKIN CARE, AND ZINA CARE. TURNED AND REPOSITIONED. DENIES PAIN.
[2019-05-06] MEDS: hydrALAZINE 25 MG TAB PO SCH ×3 (05:00→21:00)
--- NOTE | 2019-05-06 05:40 | NUR ---
PATIENTS BLOOD PRESSURE TRENDING IN 110's. SCHEDULED MEDICATIONS FOR HYDRALAZINE NOT GIVEN, MD AWARE AND CONFIRMED OK TO CONTINUE TO HOLD PER LOW BP. PATIENT AWAKE IN BED, OXYMIZER IN PLACE, 3LPM. IV TO LEFT AC 22G, IVF INFUSING AT 10ML/HR. DENIES PAIN. SAFETY ALARMS IN PLACE, CALL LIGHT AND VALUABLES WITHIN REACH.
--- NOTE | 2019-05-06 07:15 | NUR ---
RECEIVED REPORT FROM NODULIZER NURSE RADHA FOR CONTINUITY OF CARE. PT IN STABLE CONDITION. RESPIRATIONS EVEN AND UNLABORED, 02 3L VIA OXYMIZER. IV INTACT AND PATENT. SAFETY MEASURES IN PLACE. BED IN LOW POSITION. BED ALARM ON. CALL LIGHT AT BEDSIDE. WILL CONTINUE TO MONITOR.
[2019-05-06 07:35] LABS: BASOPHILS # (AUTO) 0.3 K/uL (0.00-0.22); EOSINOPHILS # (AUTO) 0.4 K/uL (0-0.4); HEMATOCRIT 27.7 % (36-52); HEMOGLOBIN 9.5 g/dL (12.0-18.0); LYMPHOCYTES # (AUTO) 2.6 K/uL (2.0-11.5); LYMPHOCYTES % (AUTO) 18.7 % (20.5-51.1); MEAN CORPUSCULAR HEMOGLOBIN 32 pg (27-31); MEAN CORPUSCULAR HGB CONC 34 g/dL (33-37); MEAN CORPUSCULAR VOLUME 93.6 fL (80-94); MONOCYTES # (AUTO) 1.5 K/uL (0.8-1.0); MONOCYTES % (AUTO) 10.8 % (1.7-9.3); NEUTROPHILS # (AUTO) 9.2 K/uL (1.8-7.7); NEUTROPHILS % (AUTO) 65.5 % (42.2-75.2); PLATELET COUNT (AUTO) 228 K/uL (140-450); RED BLOOD CELL COUNT(AUTO) 2.96 MIL/uL (4.20-6.10); RED CELL DISTRIBUTION WIDTH 14.3 % (11.6-13.7)
[2019-05-06 08:00] VITALS: BP 135/76
[2019-05-06 08:01] LABS: MAGNESIUM 2.3 mg/dL (1.8-2.4)
[2019-05-06 08:06] LABS: ANION GAP 15.4 (8-16); CHLORIDE 101 mmol/L (98-107); GLUCOSE 168 mg/dL (74-106); POTASSIUM 3.4 mmol/L (3.5-5.1); SODIUM SERUM 138 mmol/L (136-145); UREA NITROGEN, BLOOD 40 mg/dL (7-18)
[2019-05-06 08:10] LABS: CREATININE 4.1 mg/dL (0.6-1.3)
--- NOTE | 2019-05-06 08:11 | NUR ---
CRITICAL LAB BUN 40, CREAT 4.1, K 3.2 DR. MAN MCKNIGHT.
[2019-05-06 08:18] LABS: PHOSPHORUS 3.6 mg/dL (2.5-4.9)
[2019-05-06] MEDS ORDERED: ZOS2.25I IV (08:35)
[2019-05-06] MEDS ORDERED: POTASSIUM CHLORIDE 10 MEQ TABER PO SCH (09:00)
[2019-05-06] MEDS: VIT-B COMP/VIT-C/FOLIC ACID 1 TAB PO SCH (09:02)
[2019-05-06] MEDS: CARVEDILOL 6.25 MG TAB PO SCH ×2 (09:02→21:13)
[2019-05-06] MEDS: PANTOPRAZOLE 40 MG TABEC PO SCH (09:03)
[2019-05-06] MEDS: CARBIDOPA/LEVODOPA 25/100 MG 1 TAB PO SCH ×3 (09:03→18:31)
[2019-05-06] MEDS: ASPIRIN 81 MG TAB.CHEW PO SCH (09:03)
[2019-05-06] MEDS: ISOSORBIDE MONONITRATE 30 MG TABER PO SCH (09:03)
[2019-05-06] MEDS: GABAPENTIN 100 MG CAP PO SCH ×3 (09:03→18:31)
[2019-05-06] MEDS: FUROSEMIDE 20 MG/2 ML VIAL IVP SCH (09:04)
--- NOTE | 2019-05-06 09:06 | NUR ---
GAVE ORDERED DUE MEDICATIONS AT THIS TIME. PT TOLERATED WELL. WILL CONTINUE TO MONITOR. ELECTROMECHANICAL ENGINEER ANGELA [id number].
--- NOTE | 2019-05-06 12:40 | NUR ---
DIALYSIS STARTED AT THIS TIME.
[2019-05-06] MEDS: PIPERACILLIN/TAZOBACTAM 2.25 GM in DEXTROSE 5% 50 ML IV SCH ×2 (13:00→21:13)
--- NOTE | 2019-05-06 13:00 | NUR ---
P.T. NOTES PATIENT UNAVAILABLE IN THE MORNING FOR THERAPY (EATING HIS BREAKFAST VERY SLOWLY) AND THEN HAVING HEMO DIALYSIS IN THE AFTERNOON. PLAN: WE'LL FOLLOW UP AGAIN TOMORROW IF HE REMAINS IN THIS HOSPITAL.
[2019-05-06] MEDS: NACL 0.9% 1,000 ML IV SCH (14:10)
--- NOTE | 2019-05-06 15:45 | NUR ---
HEMODIALYSIS COMPLETE AT THIS TIME. PT IN STABLE CONDITION.
[2019-05-06 16:00] VITALS: BP_SYST 129; BP_SYST 138; BP_DIAS 67; BP_DIAS 69
--- NOTE | 2019-05-06 18:30 | NUR ---
ULTRASOUND CHEST AT THIS TIME. PT TOLERATED WELL.
--- NOTE | 2019-05-06 19:18 | NUR ---
RECEIVED REPORT FROM AM SHIFT NURSE ANABEL FOR CONTINUITY OF CARE. PT IN STABLE CONDITION. RIGHT UPPER CHEST PORT-A-CATH RESPIRATIONS EVEN AND UNLABORED, 02 3L VIA OXYMIZER. WITH IV LEFT AC G 22, INTACT AND PATENT. SAFETY MEASURES IN PLACE. BED IN LOW POSITION. BED ALARM ON. CALL LIGHT AT BEDSIDE. WILL CONTINUE TO MONITOR.
--- NOTE | 2019-05-06 19:19 | NUR ---
PT AA O X 2, AMHARIC SPEAKING, REQUIRES V BLOCK SAW OPERATOR
[2019-05-06 20:00] VITALS: BP 136/68
--- NOTE | 2019-05-06 20:30 | NUR ---
XRAY AT BEDSIDE. CHECK FOR RESOLVING PLEURAL EFFUSION
[2019-05-06] MEDS: ATORVASTATIN 20 MG TAB PO SCH (21:15)
--- NOTE | 2019-05-06 21:24 | NUR ---
BP AT 136/68, BP WNL, INFORMED DR. TRIVEDI, SAID TO HOLD APRESOLINE AND TO GIVE COREG
[2019-05-07] VITALS (7 sets, daily range): BP systolic 83–131; BP diastolic 49–73
[2019-05-07] MEDS: hydrALAZINE 25 MG TAB PO SCH ×3 (05:00→21:00)
[2019-05-07] MEDS: PIPERACILLIN/TAZOBACTAM 2.25 GM in DEXTROSE 5% 50 ML IV SCH ×3 (05:27→21:08)
--- NOTE | 2019-05-07 05:27 | NUR ---
PT BP 114/ 63 HR 70; WNL- INFORMED DR. TRIVEDI; W/ ORDERS TO HOLD APRESOLINE 0500.
[2019-05-07] MEDS ORDERED: DEXT 5% / NACL 0.45% 500 ML IV SCH (06:35)
--- NOTE | 2019-05-07 07:20 | NUR ---
RECEIVED REPORT FROM NIGHT NURSE. PT IN STABLE CONDITION, IN BED AWAKE, NO DISTRESS NOTED, FLACC 0. RESPIRATIONS EVEN AND UNLABORED ON 3L O2 VIA OXIMIZER. IV IN PLACE IN L AC 22G PATENT AND ASYMPTOMATIC INFUSING PER ORDER. PRESENTS CLOSED SKIN TEARS ON LEFT FOREARM. NPO STATUS. SAFETY MEASURES IN PLACE. CALL LIGHT WITHIN REACH, BED IN LOW POSITION. WILL CONTINUE TO MONITOR.
[2019-05-07 08:23] LABS: BASOPHILS # (AUTO) 0.1 K/uL (0.00-0.22); BASOPHILS % (AUTO) 0.8 % (0.0-2.0); EOSINOPHILS # (AUTO) 0.4 K/uL (0-0.4); EOSINOPHILS % (AUTO) 3.1 % (0.0-4.0); HEMATOCRIT 29.5 % (36-52); HEMOGLOBIN 10.4 g/dL (12.0-18.0); LYMPHOCYTES # (AUTO) 2.5 K/uL (2.0-11.5); LYMPHOCYTES % (AUTO) 18.7 % (20.5-51.1); MEAN CORPUSCULAR HEMOGLOBIN 33 pg (27-31); MEAN CORPUSCULAR HGB CONC 35 g/dL (33-37); MONOCYTES # (AUTO) 1.4 K/uL (0.8-1.0); MONOCYTES % (AUTO) 10.2 % (1.7-9.3); NEUTROPHILS % (AUTO) 67.2 % (42.2-75.2); PLATELET COUNT (AUTO) 231 K/uL (140-450); RED BLOOD CELL COUNT(AUTO) 3.17 MIL/uL (4.20-6.10); RED CELL DISTRIBUTION WIDTH 14.2 % (11.6-13.7); WHITE BLOOD COUNT (AUTO) 13.3 K/uL (4.8-10.8)
[2019-05-07 08:41] LABS: ANION GAP 11.5 (8-16); CARBON DIOXIDE 27.9 mmol/L (21-32); CHLORIDE 101 mmol/L (98-107); CREATININE 3.4 mg/dL (0.6-1.3); GLUCOSE 201 mg/dL (74-106); POTASSIUM 3.4 mmol/L (3.5-5.1); SODIUM SERUM 137 mmol/L (136-145); UREA NITROGEN, BLOOD 29 mg/dL (7-18)
[2019-05-07 08:45] LABS: MAGNESIUM 1.9 mg/dL (1.8-2.4); PHOSPHORUS 3.9 mg/dL (2.5-4.9)
[2019-05-07] MEDS: PANTOPRAZOLE 40 MG TABEC PO SCH (09:00)
[2019-05-07] MEDS: CARVEDILOL 6.25 MG TAB PO SCH ×2 (09:00→21:09)
[2019-05-07] MEDS: FUROSEMIDE 20 MG/2 ML VIAL IVP SCH (09:00)
[2019-05-07] MEDS ORDERED: DULAGLUTIDE 0.75 MG SCH (09:00)
[2019-05-07] MEDS: GABAPENTIN 100 MG CAP PO SCH ×3 (09:00→16:37)
[2019-05-07] MEDS: ASPIRIN 81 MG TAB.CHEW PO SCH (09:00)
[2019-05-07] MEDS: VIT-B COMP/VIT-C/FOLIC ACID 1 TAB PO SCH (09:00)
[2019-05-07] MEDS: CARBIDOPA/LEVODOPA 25/100 MG 1 TAB PO SCH ×3 (09:00→16:37)
[2019-05-07] MEDS: ISOSORBIDE MONONITRATE 30 MG TABER PO SCH (09:00)
--- NOTE | 2019-05-07 09:58 | NUR ---
MEDICATIONS ADMINISTERED PER ORDER. PT TOLERATED WELL, NO DISTRESS NOTED. RESPIRATIONS EVEN AND UNLABORED ON O2 3L OXIMIZER. SAFETY MEASURES IN PLACE. CALL LIGHT WITHIN REACH. WILL CONTINUE TO MONITOR.
--- NOTE | 2019-05-07 10:30 | NUR ---
Plate Shear Operator Note: I contacted the following snfs: Per Rocio from [facility] and [facility] , they do not have a contract with health insurance plan, not able to accept patient. Per Karyna from [facility] / , they have a contract with insurance and are able to accept patient. Per Rachel from [facility] , they have a contract with insurance and are able to accept patient. Per patient's daughter Mell, she would like patient to be transferred to [facility], she is in agreement with transferring patient to [facility] today, Milieu Counselor Lindsey made aware. Addendum: 05/07/19 at 1554 by Ritika Walker SS Per Milieu Counselor Lindsey, patient goes to [facility], chair time 6:15am, Karyna from [facility] was given outpatient dialysis information. Karyna reported patient may go to room 15B anytime today, accepting MD is /.
--- NOTE | 2019-05-07 12:06 | NUR ---
VITAL SIGNS TAKEN AT THIS TIME. NO DISTRESS NOTED. RESPIRATIONS EVEN AND UNLABORED ON 3L OF O2 VIA OXIMIZER. SAFETY MEASURES IN PLACE. CALL LIGHT WITHIN REACH. WILL CONTINUE TO MONITOR.
--- NOTE | 2019-05-07 13:40 | NUR ---
THORACENTESIS FINISHED AT THIS TIME. 1500ML OUTPUT. PT TOLERATED WELL, NO DISTRESS NOTED. WILL MONITOR VITAL SIGNS Q15. SAFETY MEASURES IN PLACE. CALL LIGHT WITHIN REACH.
--- NOTE | 2019-05-07 14:11 | NUR ---
MEDICATIONS ADMINISTERED PER ORDER. PT TOLERATED WELL, NO DISTRESS NOTED. DAUGHTER AT THE BEDSIDE. SAFETY MEASURES IN PLACE. WILL CONTINUE TO MONITOR.
[2019-05-07] MEDS ORDERED: AZIT250T3 PO (15:03)
[2019-05-07] MEDS ORDERED: CEFT1SOL1 IV (15:03)
--- NOTE | 2019-05-07 16:42 | NUR ---
MEDICATIONS ADMINISTERED PER ORDER. PT TOLERATED WELL. NO DISTRESS NOTED. RESPIRATIONS EVEN AND UNLABORED ON 3L OXIMIZER. SAFETY MEASURES IN PLACE. CALL LIGHT WITHIN REACH.
[2019-05-07 18:09] LABS: APPEARANCE,SPUN,BODY FLUID BLOODY (CLEAR); APPEARANCE,UNSPUN,BODY FLUID BLOODY (CLEAR); COLOR,BODY FLUID RED (LT YELLOW); SPECIMENTYPE,BODY FLUID THORACENTESIS
[2019-05-07 18:10] LABS: TOTAL VOLUME,BODY FLUID 1200 mL
[2019-05-07 18:33] LABS: GLUCOSE,BODY FLUID 206 mg/dL
--- NOTE | 2019-05-07 18:51 | NUR ---
SPOKE WITH PT'S DAUGHTER RADHA OVER THE PHONE AND SHE IS IN AGREEMENT WITH THE TRANSFER TO [facility] WHICH SHE REFUSED EARLIER. PER RADHA, SHE WILL CONTACT [facility] TOMORROW IF THERE IS A WAY TO TRANSFER HER DAD TO ANOTHER FACILITY WHICH HER FRIEND IS WORKING.
--- NOTE | 2019-05-07 19:13 | NUR ---
REPORT GIVEN TO NIGHT NURSE FOR CONTINUITY OF CARE.
[2019-05-07 19:52] LABS: RBC, BODY FLUID 27555 /cu. mm.; WBC, BODY FLUID 111 /cu. mm.
[2019-05-07 19:53] LABS: POLYNUCLEAR, BODY FLUID 2 %
--- NOTE | 2019-05-07 20:52 | NUR ---
INFORMED DR. TRIVEDI. AND DR. TRIVEDI TALKING TO TAMMY MCMAHON VIA PHONE CALL REGARDING THE PROCEDURE: [employer] THORACENTESES DONE THIS AM. DISCHARGE WILL STILL PURSUE PER DR. TRIVEDI.
--- NOTE | 2019-05-07 21:06 | NUR ---
RECEIVED PT FROM AM SHIFT. PT IN NO APPARENT RESPIRATORY DISTRESS AT THIS TIME; HR 78, RR 16, SPO2 96% ON 2L NC, AND A CLEAR/DIMINISHED BREATH SOUNDS. NO INDICATION FOR PRN HHN TX AT THIS TIME. PT INFORMED TO CALL RT PLATE FURNACE OPERATOR WHEN EXPERIENCING SOB. WILL CONTINUE TO MONITOR PT.
[2019-05-07] MEDS: ATORVASTATIN 20 MG TAB PO SCH (21:08)
--- NOTE | 2019-05-07 21:09 | NUR ---
DR. TRIVEDI AWARE THAT GAVE COREG; HELD THE APRESOLINE BP 129/72 HR 77
--- NOTE | 2019-05-07 21:18 | NUR ---
DR. TRIVEDI WAS AT BEDSIDE TALKED TO TAMMY MCMAHON EXPLAINED READY FOR DISCHARGE. TAMMY MCMAHON SAID OK FOR DISCHARE.
--- NOTE | 2019-05-07 22:47 | NUR ---
[id number]
--- NOTE | 2019-05-07 22:47 | NUR ---
SPOKEN TO TRANSPORT FOR [facility] STATED THAT THEY CAN NOT SEND A TRANSPORT FOR NOW BECAUSE EVERYBODY IS CLOSED NOW.
--- NOTE | 2019-05-07 23:15 | NUR ---
[facility] CALLED AGAIN IF OK TO USE A DIFFERENT TRANSPOT BUT THEY SAY NO. THEY CAN COME EARLY 0500 AM. [facility] WAS NOTIFIED IF THEY ARE OK TO TAKE THIS PATIENT EARLY IN THE MORNING AND THEY SAID ITS OK.
--- NOTE | 2019-05-07 23:17 | NUR ---
[facility] NOTIFED TO COME EARLY WHEN THEY OPEN.
--- NOTE | 2019-05-08 | NUR ---
CHECKED ON PT VITAL SIGNS WNL, NO SIGNS AND SYMPTOMS OF DISTRESS.
--- NOTE | 2019-05-08 00:15 | NUR ---
PT CHANGED AND TURNED TO SIDE W/ [facility] CONSULTANT'S WILL CONTINUE TO MONITOR
[2019-05-08 01:00] VITALS: BP 113/68
--- NOTE | 2019-05-08 02:09 | NUR ---
ENDORSED TO CHARGE NURSE, NITA FOR CONTINUITY OF CARE. PT WITH O2 AT 3 L OXYMIZER, IN STABLE CONDITION
--- NOTE | 2019-05-08 02:10 | NUR ---
TOOK OVER FROM [facility] FOR CONTINUITY OF CARE. PT RESTING QUIETLY.
[2019-05-08 03:57] VITALS: BP 158/59
--- NOTE | 2019-05-08 04:00 | NUR ---
V/S TAKEN NO COMPLAINTS.
[2019-05-08] MEDS: PIPERACILLIN/TAZOBACTAM 2.25 GM in DEXTROSE 5% 50 ML IV SCH (04:28)
[2019-05-08] MEDS: hydrALAZINE 25 MG TAB PO SCH (04:36)
--- NOTE | 2019-05-08 06:36 | NUR ---
RESTING QUIETLY, NO COMPLAINTS. [facility] HAS NOT COME YET.
--- NOTE | 2019-05-08 07:32 | NUR ---
RECEIVED BEDSIDE REPORT FROM PM RN PT AWAKE IN BED PT APPEARS STABLE AND IN NO APPARENT DISTRESS. ALL SAFETY MEASURES ARE IN PLACE. WILL CONTINUE TO MONITOR
--- NOTE | 2019-05-08 08:29 | NUR ---
RECEIVED PHONE CALL FROM FERNIE FROM [facility] [phone] SHE WANTED TO FOLLOW UP ON THE TRANSFER OF PATIENT TO [facility] INFORMED HER WE ARE STILL WAITING FOR TRANSPORTATION TO COME. PIECE GOODS CLERK FOLLOWED UP AROUND 10PM THEY STATED THEY DONT HAVE ANYONE AT THIS TIME, THEY WILL SEND SOMEONE ONCE THEY HAVE A POST EXCHANGE MANAGER AROUND 5 AM. STILL HAVE NOT HAD A TRANSPORTATION COME TO ENVIRONMENT ARTIST PATIENT. WILL SPEAK WITH TAY WHEN SHE GETS IN.
[2019-05-08] MEDS: ASPIRIN 81 MG TAB.CHEW PO SCH (09:02)
[2019-05-08] MEDS: FUROSEMIDE 20 MG/2 ML VIAL IVP SCH (09:02)
[2019-05-08] MEDS: CARVEDILOL 6.25 MG TAB PO SCH (09:03)
[2019-05-08] MEDS: ISOSORBIDE MONONITRATE 30 MG TABER PO SCH (09:03)
[2019-05-08] MEDS: VIT-B COMP/VIT-C/FOLIC ACID 1 TAB PO SCH (09:04)
[2019-05-08] MEDS: PANTOPRAZOLE 40 MG TABEC PO SCH (09:05)
[2019-05-08] MEDS: GABAPENTIN 100 MG CAP PO SCH (09:05)
[2019-05-08] MEDS: CARBIDOPA/LEVODOPA 25/100 MG 1 TAB PO SCH (09:07)
--- NOTE | 2019-05-08 09:18 | NUR ---
ADMINISTERED ALL MORNING MEDICATIONS. UNABLE TO SCAN MEDICATIONS SCANNER ON WOW 8 IS BROKEN VERIFIED ALL MEDICATIONS AND DOSAGE BEFORE ADMINISTERING MEDICATIONS.
--- NOTE | 2019-05-08 11:06 | NUR ---
SPOKE WITH PTS PERSON TO CONTACT RADHA AT [phone] INFORMED HER THAT THE PATIENT IS BEING PICKED UP BY [facility] RIGHT NOW AND GOING TO [facility]. PT HAS ALL PERSONAL BELONGINGS AND LIST OF CONTACTS PER FAMILY REQUEST. REPORT HAS BEEN GIVEN TO THE FACILITY YESTERDAY. [facility] CALLED THIS MORNING THEY STATED THEY DONT NEED ANOTHER REPORT.
== END 2019-05-08 11:15 | DRG 194 ==
LOC: MED 16:21 → MTU 19:32
PROVIDERS: ADMIT General Practice; ATTEND General Practice
PROC: 5A1D70Z Performance of Urinary Filtration, Intermittent, Less than 6 Hours Per Day (ICD-10-PCS; 2019-05-02)
PROC: 5A09357 Assistance with Respiratory Ventilation, Less than 24 Consecutive Hours, Continuous Positive Airway Pressure (ICD-10-PCS; 2019-05-04)
PROC: 5A1D70Z Performance of Urinary Filtration, Intermittent, Less than 6 Hours Per Day (ICD-10-PCS; 2019-05-04)
PROC: 5A1D70Z Performance of Urinary Filtration, Intermittent, Less than 6 Hours Per Day (ICD-10-PCS; 2019-05-06)
PROC: 0W9B3ZZ Drainage of Left Pleural Cavity, Percutaneous Approach (ICD-10-PCS; principal; 2019-05-07)
DX: I13.2 Hypertensive heart and chronic kidney disease with heart failure and with stage 5 chronic kidney disease, or end stage renal disease (principal); N17.0 Acute kidney failure with tubular necrosis; E43 Unspecified severe protein-calorie malnutrition; G20 Parkinson's disease; E11.22 Type 2 diabetes mellitus with diabetic chronic kidney disease; E11.40 Type 2 diabetes mellitus with diabetic neuropathy, unspecified; D63.8 Anemia in other chronic diseases classified elsewhere; N18.6 End stage renal disease; R31.9 Hematuria, unspecified; I50.43 Acute on chronic combined systolic (congestive) and diastolic (congestive) heart failure; I25.10 Atherosclerotic heart disease of native coronary artery without angina pectoris; F32.9 Major depressive disorder, single episode, unspecified; E78.5 Hyperlipidemia, unspecified; Z87.891 Personal history of nicotine dependence; E87.6 Hypokalemia; F02.80 Dementia in other diseases classified elsewhere, unspecified severity, without behavioral disturbance, psychotic disturbance, mood disturbance, and anxiety; E83.42 Hypomagnesemia; Z68.1 Body mass index [BMI] 19.9 or less, adult; Z99.2 Dependence on renal dialysis; Z86.73 Personal history of transient ischemic attack (TIA), and cerebral infarction without residual deficits; Z79.82 Long term (current) use of aspirin; Z79.899 Other long term (current) drug therapy; I25.2 Old myocardial infarction; Z87.442 Personal history of urinary calculi
CPT/HCPCS: 36415; 71045; 76604; 76770; 76942; 80048; 80053; 80305; 81001; 82150; 82945; 82948; 83036; 83605; 83690; 83735; 83880; 84100; 84157; 84439; 84443; 84484; 85025; 85610; 85730; 87040; 87070; 87075; 87081; 87086; 87205; 89051; 92610; 93005; 93925; 94640; 94660; 96360; 97110; 97112; 97161-GP; 97530; 99285; J1644; J1940; J2001; J2543; J2997; J3475; J7030; J7060; J7620; P9046; Q0092